=== PATIENT | male | born 1985 | race Caucasian/White ===

== ENCOUNTER 2019-04-25 19:02 | Observation (INO) | payer BC ==
[~2019-04-25] VITALS: Ht 182.9 cm; Wt 69.3 kg
[~2019-04-25 19:02] MED LIST: ACET325 PO; ALBU90OI; ALBU90OI61 INH; AMOX500 PO; AMOX50SU PO; CHLO25 PO; CLOM50A PO; CLON.5; Esgic Tablet1 EACH PO; FAMO20 PO; FLUO20; FLUO20 PO; HYDACE5 PO; IBUP200 PO; LAVAP4L PO; LORA.5; LORA1 PO; PANT40 PO; PROM25 PO; QUET100 PO; QUET25; QUET25 PO; RANI150 PO; SERT20L; SUCR1 PO
[2019-04-25 19:14] LABS: Source, Urine Clean Catch
[2019-04-25 19:21] LABS: BASOPHILS ABSOLUTE AUTO 0.09 K/mm3 (0.00-0.23); BASOPHILS PERCENT AUTO 1 % (0-2); EOSINOPHILS ABSOLUTE AUTO 0.26 K/mm3 (0.00-0.68); EOSINOPHILS PERCENT AUTO 3 % (0-6); Hematocrit 45.8 % (37.0-53.0); Hemoglobin 15.7 g/dL (13.5-17.5); IMMATURE GRAN ABSOLUTE AUTO 0.02 K/mm3 (0.00-0.10); IMMATURE GRAN PERCENT AUTO 0 % (0-1); LYMPHOCYTES ABSOLUTE AUTO 2.58 K/mm3 (0.84-5.20); LYMPHOCYTES PERCENT AUTO 34 % (21-46); MONOCYTES ABSOLUTE AUTO 0.75 K/mm3 (0.16-1.47); MONOCYTES PERCENT AUTO 10 % (4-13); Mean Corpuscular HGB 32.6 pg (26.0-34.0); Mean Corpuscular HGB Conc 34.3 g/dL (31.5-36.5); Mean Corpuscular Volume 95 fL (80-100); Mean Platelet Volume 8.2 fL (9.1-12.4); NEUTROPHILS ABSOLUTE AUTO 3.92 K/mm3 (1.96-9.15); NEUTROPHILS PERCENT AUTO 51 % (41-73); Platelet Count 206 K/mm3 (150-400); RDW Standard Deviation 46.5 fL (35.1-46.3); Red Blood Cell Count 4.81 M/mm3 (4.30-5.90); White Blood Cell Count 7.62 K/mm3 (4.00-11.30)
[2019-04-25 19:24] LABS: Bilirubin, Urine Neg (Neg); Blood, Urine 1+ (Neg); Glucose Qualitative, Urine Neg (Neg); Ketones, Urine Neg (Neg); Leukocyte Esterase, Urine Neg (Neg); Nitrite, Urine Neg (Neg); Protein, Urine 1+ (Neg); Urobilinogen, Urine NORM (Normal)
[2019-04-25 19:42] LABS: Acetaminophen, Random <2.0 ug/mL (10.0-30.0); Alanine Aminotransfer (ALT/SGP 26 U/L (12-78); Albumin, Blood 3.5 g/dL (3.4-5.0); Albumin/Globulin Ratio 1.1 (0.8-1.8); Alk Phos 55 U/L (50-136); Anion Gap 9 mmol/L (6-16); Aspartate Aminotrans (AST/SGOT 32 U/L (12-37); Bilirubin, Total 0.4 mg/dL (0.1-1.0); Blood Urea Nitrogen 9 mg/dL (8-24); Bun/Creatinine Ratio 15.4 (12.0-20.0); CO2, Blood 22 mmol/L (21-32); Calcium, Blood 6.5 mg/dL (8.5-10.1); Chloride, Blood 111 mmol/L (98-108); Creatinine, Blood 0.59 mg/dL (0.60-1.20); Ethanol (Alcohol), Blood, Med 297 mg/dL; Globulin, Blood 3.1 g/dL (2.2-4.0); Glomerular Filtration Rate >60 (60-); Glucose, Blood 68 mg/dL (70-99); Potassium, Blood 3.4 mmol/L (3.5-5.5); Salicylate 4.1 mg/dL (2.8-20.0); Sodium, Blood 142 mmol/L (136-145); Total Protein, Blood 6.6 g/dL (6.4-8.2)
[2019-04-25 19:46] LABS: Thyroid Stimulating Hormone 0.879 uIU/mL (0.360-4.800)
[2019-04-25 19:49] LABS: Appearance, Urine Clear (Clear); Color, Urine No Color (P-Yellow)
[2019-04-25 19:51] LABS: Red Blood Cells, Urine 0-2 /hpf (0-2); Squamous Epithelial Cells Not Seen /hpf (Few); White Blood Cells, Urine 0-2 /hpf (0-5)
[2019-04-25 19:53] LABS: Bacteria Rare /hpf
[2019-04-25 19:55] LABS: U Amphetamine Screen Not Detected; U Barbituate Screen Not Detected; U Benzodiazapine Screen Not Detected; U Buprenorphine Screen Not Detected; U Cannabinoids Screen Not Detected; U Cocaine Screen Not Detected; U Methadone Screen Not Detected; U Methamphetamine Screen Not Detected; U Opiates Screen Not Detected; U Oxycodone Screen Not Detected; U Phencyclidine Screen Not Detected
[2019-04-25 19:56] LABS: U Propoxyphene Screen Not Detected
[2019-04-25] MEDS ORDERED: CHLO25 PO (20:11)
[2019-04-25 21:07] LABS: Magnesium, Blood 2.1 mg/dL (1.6-2.4); Phosphorus, Blood 2.6 mg/dL (2.5-4.9)
[2019-04-26 01:38] LABS: Alanine Aminotransfer (ALT/SGP 28 U/L (12-78); Albumin, Blood 3.9 g/dL (3.4-5.0); Albumin/Globulin Ratio 1.1 (0.8-1.8); Alk Phos 62 U/L (50-136); Anion Gap 8 mmol/L (6-16); Aspartate Aminotrans (AST/SGOT 35 U/L (12-37); Bilirubin, Total 0.5 mg/dL (0.1-1.0); Blood Urea Nitrogen 10 mg/dL (8-24); Bun/Creatinine Ratio 13.2 (12.0-20.0); CO2, Blood 24 mmol/L (21-32); Calcium, Blood 8.5 mg/dL (8.5-10.1); Chloride, Blood 106 mmol/L (98-108); Creatinine, Blood 0.76 mg/dL (0.60-1.20); Globulin, Blood 3.5 g/dL (2.2-4.0); Glomerular Filtration Rate >60 (60-); Glucose, Blood 68 mg/dL (70-99); Potassium, Blood 4.3 mmol/L (3.5-5.5); Sodium, Blood 138 mmol/L (136-145); Total Protein, Blood 7.4 g/dL (6.4-8.2)
--- NOTE | 2019-04-26 05:06 | NUR ---
SHIFT SUMMARY PATIENT IS ALERT AND ORIENTED. CAME TO ROOM VIA WHEEL CHAIR. PATIENT REPORTS THAT HE DRINKS ON AVERAGE AT LEAST 4 BEERS A NIGHT. SOMETIMES MORE, HE STATES HIS LAST DRINK WAS AROUND 1500. NO SHAKINESS NOTED, NO HEADACHE, NO VISUAL DISTURBANCES. NO NAUSEA OR VOMITING. TOLERATING FLUIDS WELL, DRINKING WATER AND GATOR AID. PATIENT IS INDEPENDENT IN ROOM. ON TELE SINUS RHYTHM. PT IS INDEPENDENT IN ROOM. LABS RESULTS FROM 0 SHOW THAT CALIUM LEVEL IS NOW WNL. POTASSIUM LEVEL IS WNL WELL. PATIENT IS EAGER TO GO HOME. NO NEW CHANGES THROUGHOUT THE NIGHT. CALL LIGHT IN REACH.
[2019-04-26] MEDS ORDERED: CHLO25 PO (10:02)
[2019-04-26] MEDS ORDERED: ONE DAILY ESS400 MCG PO (10:03)
--- NOTE | 2019-04-26 10:51 | NUR ---
1030 PT WITH VISIBLE HAND TREMORS, REPORTS NAUSEA, PRN LIBRIUM GIVEN.
--- NOTE | 2019-04-26 12:13 | NUR ---
1150 PT DISCHARGED HOME VIA PERSONAL VEHICLE, ACCOMPANIED AND DRIVEN BY . PT SELF AMBULATED TO ENTRANCE PER HIS REQUEST. IV REMOVED. D/C PAPERWORK REVIEWED WITH PT AND COPY PROVIDED. HARD SCRIPT FOR LIBRIUM GIVEN TO PT. NO OTHER CHANGES OR CONCERNS.
== END 2019-04-26 11:50 | disposition home or self-care (01) ==
LOC: ER 19:02 → MEDS 19:03 → ER 22:20 → MEDS 22:20 → ENPENDDIS 04-26 09:55 → MEDS 04-26 11:50
PROVIDERS: Emergency Medicine; ADMIT Internal Medicine
DX: E83.51 Hypocalcemia (principal); J45.20 Mild intermittent asthma, uncomplicated; F10.239 Alcohol dependence with withdrawal, unspecified; E87.6 Hypokalemia; F32.9 Major depressive disorder, single episode, unspecified; E03.9 Hypothyroidism, unspecified; F17.210 Nicotine dependence, cigarettes, uncomplicated; Z88.5 Allergy status to narcotic agent
CPT/HCPCS: 71046; 80053; 81001; 82306; 82310; 82652; 83690; 83735; 83970; 84100; 84443; 85025; 93005; 93010; 96361; 96365; 96375; 96376; 99285-25; G0378; G0480; J0610; J3360; J7030

== ENCOUNTER 2019-06-20 19:23 | Emergency (ER) | payer BC ==
[~2019-06-20] VITALS: Ht 188 cm; Wt 83.9 kg
[~2019-06-20 19:23] MED LIST changes: +ONE DAILY ESS400 MCG PO
== END 2019-06-20 20:37 | disposition home or self-care (01) ==
LOC: ER 19:23
DX: S91.311A Laceration without foreign body, right foot, initial encounter (principal); F10.129 Alcohol abuse with intoxication, unspecified; J45.909 Unspecified asthma, uncomplicated; F32.9 Major depressive disorder, single episode, unspecified; F17.210 Nicotine dependence, cigarettes, uncomplicated; Z88.5 Allergy status to narcotic agent; X58.XXXA Exposure to other specified factors, initial encounter
CPT/HCPCS: 12002; 99282-25

== ENCOUNTER 2020-02-23 09:40 | Emergency (ER) | payer BC ==
[~2020-02-23] VITALS: Ht 182.9 cm; Wt 74.8 kg
[~2020-02-23 09:40] MED LIST changes: +QUETIAPINE FUMA25 MG PO; +ZOLOFT50 MG PO; +Zoloft100 MG PO
[2020-02-23 10:11] LABS: BASOPHILS ABSOLUTE AUTO 0.07 K/mm3 (0.00-0.23); BASOPHILS PERCENT AUTO 1 % (0-2); EOSINOPHILS ABSOLUTE AUTO 0.26 K/mm3 (0.00-0.68); EOSINOPHILS PERCENT AUTO 5 % (0-6); Hematocrit 51.1 % (37.0-53.0); Hemoglobin 18.1 g/dL (13.5-17.5); IMMATURE GRAN ABSOLUTE AUTO 0.01 K/mm3 (0.00-0.10); IMMATURE GRAN PERCENT AUTO 0 % (0-1); LYMPHOCYTES ABSOLUTE AUTO 1.96 K/mm3 (0.84-5.20); LYMPHOCYTES PERCENT AUTO 34 % (21-46); MONOCYTES ABSOLUTE AUTO 0.69 K/mm3 (0.16-1.47); MONOCYTES PERCENT AUTO 12 % (4-13); Mean Corpuscular HGB 33.1 pg (26.0-34.0); Mean Corpuscular HGB Conc 35.4 g/dL (31.5-36.5); Mean Corpuscular Volume 93 fL (80-100); Mean Platelet Volume 8.3 fL (9.1-12.4); NEUTROPHILS ABSOLUTE AUTO 2.71 K/mm3 (1.96-9.15); NEUTROPHILS PERCENT AUTO 48 % (41-73); Platelet Count 228 K/mm3 (150-400); RDW Coefficient Variation 12.7 % (11.7-14.2); RDW Standard Deviation 43.9 fL (35.1-46.3); Red Blood Cell Count 5.47 M/mm3 (4.30-5.90)
[2020-02-23 10:25] LABS: Alanine Aminotransfer (ALT/SGP 45 U/L (12-78); Albumin, Blood 4.6 g/dL (3.4-5.0); Albumin/Globulin Ratio 1.2 (0.8-1.8); Alk Phos 67 U/L (50-136); Anion Gap 11 mmol/L (6-16); Aspartate Aminotrans (AST/SGOT 47 U/L (12-37); Bilirubin, Total 0.4 mg/dL (0.1-1.0); Blood Urea Nitrogen 6 mg/dL (8-24); Bun/Creatinine Ratio 8.2 (12.0-20.0); CO2, Blood 25 mmol/L (21-32); Calcium, Blood 8.7 mg/dL (8.5-10.1); Chloride, Blood 103 mmol/L (98-108); Creatinine, Blood 0.74 mg/dL (0.60-1.20); Glomerular Filtration Rate >60 (60-); Glucose, Blood 121 mg/dL (70-99); Potassium, Blood 3.7 mmol/L (3.5-5.5); Sodium, Blood 139 mmol/L (136-145); Total Protein, Blood 8.6 g/dL (6.4-8.2)
[2020-02-23] MEDS ORDERED: LORA.5 PO (11:18)
[2020-02-23] MEDS ORDERED: ONDA4 MM (11:18)
== END 2020-02-23 13:12 | disposition home or self-care (01) ==
LOC: ER 09:40
PROVIDERS: Emergency Medicine
DX: R11.2 Nausea with vomiting, unspecified (principal); E86.0 Dehydration; F32.9 Major depressive disorder, single episode, unspecified; F41.9 Anxiety disorder, unspecified; J45.909 Unspecified asthma, uncomplicated; E03.9 Hypothyroidism, unspecified; F17.210 Nicotine dependence, cigarettes, uncomplicated; Z88.5 Allergy status to narcotic agent; Z79.899 Other long term (current) drug therapy
CPT/HCPCS: 36415; 80053; 83690; 85025; 96374; 96375; 99283-25; J2060; J2405; J3411; J3475; J7042

== ENCOUNTER 2020-08-21 19:42 | Emergency (ER) | payer BC ==
[~2020-08-21] VITALS: Ht 182.9 cm; Wt 68.0 kg
[~2020-08-21 19:42] MED LIST changes: +LORA.5 PO; +ONDA4 MM
== END 2020-08-21 19:58 | disposition home or self-care (01) ==
LOC: ER 19:42
DX: M25.511 Pain in right shoulder (principal); E03.9 Hypothyroidism, unspecified; F32.9 Major depressive disorder, single episode, unspecified; F10.229 Alcohol dependence with intoxication, unspecified; F17.210 Nicotine dependence, cigarettes, uncomplicated; Z79.899 Other long term (current) drug therapy
CPT/HCPCS: 99283

== ENCOUNTER 2020-08-30 18:46 | Emergency (ER) | payer BC ==
[~2020-08-30] VITALS: Ht 182.9 cm; Wt 70.3 kg
[2020-08-30 19:13] LABS: BASOPHILS ABSOLUTE AUTO 0.04 K/mm3 (0.00-0.23); BASOPHILS PERCENT AUTO 1 % (0-2); EOSINOPHILS ABSOLUTE AUTO 0.31 K/mm3 (0.00-0.68); EOSINOPHILS PERCENT AUTO 4 % (0-6); Hematocrit 48.5 % (37.0-53.0); Hemoglobin 16.8 g/dL (13.5-17.5); IMMATURE GRAN ABSOLUTE AUTO 0.01 K/mm3 (0.00-0.10); IMMATURE GRAN PERCENT AUTO 0 % (0-1); LYMPHOCYTES ABSOLUTE AUTO 1.79 K/mm3 (0.84-5.20); LYMPHOCYTES PERCENT AUTO 23 % (21-46); MONOCYTES ABSOLUTE AUTO 0.65 K/mm3 (0.16-1.47); MONOCYTES PERCENT AUTO 8 % (4-13); Mean Corpuscular HGB Conc 34.6 g/dL (31.5-36.5); Mean Corpuscular Volume 90 fL (80-100); Mean Platelet Volume 8.6 fL (9.1-12.4); NEUTROPHILS ABSOLUTE AUTO 5.09 K/mm3 (1.96-9.15); NEUTROPHILS PERCENT AUTO 65 % (41-73); Platelet Count 129 K/mm3 (150-400); RDW Coefficient Variation 13.1 % (11.7-14.2); RDW Standard Deviation 43.1 fL (35.1-46.3); Red Blood Cell Count 5.42 M/mm3 (4.30-5.90); White Blood Cell Count 7.89 K/mm3 (4.00-11.30)
[2020-08-30 19:47] LABS: Alanine Aminotransfer (ALT/SGP 40 U/L (12-78); Albumin, Blood 4.2 g/dL (3.4-5.0); Alk Phos 93 U/L (50-136); Anion Gap 7 mmol/L (6-16); Aspartate Aminotrans (AST/SGOT 51 U/L (12-37); Bilirubin, Total 0.5 mg/dL (0.1-1.0); Blood Urea Nitrogen 6 mg/dL (8-24); Bun/Creatinine Ratio 9.4 (12.0-20.0); CO2, Blood 27 mmol/L (21-32); Calcium, Blood 8.9 mg/dL (8.5-10.1); Chloride, Blood 109 mmol/L (98-108); Creatinine, Blood 0.64 mg/dL (0.60-1.20); Glomerular Filtration Rate >60 (60-); Glucose, Blood 98 mg/dL (70-99); Potassium, Blood 3.9 mmol/L (3.5-5.5); Sodium, Blood 143 mmol/L (136-145); Total Protein, Blood 8.2 g/dL (6.4-8.2)
[2020-08-30] MEDS ORDERED: ALPR1 PO (19:47)
[2020-08-30 19:51] LABS: Ethanol (Alcohol), Blood, Med 348 mg/dL
[2020-08-30] MEDS ORDERED: CHLO25 PO (20:02)
== END 2020-08-30 20:55 | disposition home or self-care (01) ==
LOC: ER 18:46
PROVIDERS: Emergency Medicine
DX: F10.129 Alcohol abuse with intoxication, unspecified (principal); F32.9 Major depressive disorder, single episode, unspecified; F17.210 Nicotine dependence, cigarettes, uncomplicated; Z88.5 Allergy status to narcotic agent; Z79.899 Other long term (current) drug therapy; Y90.8 Blood alcohol level of 240 mg/100 ml or more
CPT/HCPCS: 80053; 85025; 99284; G0480

== ENCOUNTER 2020-10-10 09:54 | Emergency (ER) | payer BC ==
[~2020-10-10] VITALS: Ht 182.9 cm; Wt 68.0 kg
[~2020-10-10 09:54] MED LIST changes: +ALPR1 PO
[2020-10-10 11:15] LABS: Calcium, Ionized (POC) 1.08 mmol/L (1.10-1.46); Chloride (POC) 97 mmol/L (98-108); Creatinine (POC) 0.9 mg/dL (0.8-1.3); Glucose (ISTAT POC) 93 mg/dL (70-99); Hemoglobin (POC) 18.7 g/dL (13.5-17.5); Potassium (POC) 3.9 mmol/L (3.5-5.5); Sodium (POC) 133 mmol/L (135-148); Total CO2 (POC) 30 mmol/L (21-32)
[2020-10-10] MEDS ORDERED: NYSTATIN100000 UN4 PO (11:29)
[2020-10-10] MEDS ORDERED: BENZ100A PO (11:29)
[2020-10-10] MEDS ORDERED: Diflucan100 MG PO (11:29)
[2020-10-10] MEDS ORDERED: CHLO25 PO (11:42)
== END 2020-10-10 11:45 | disposition home or self-care (01) ==
LOC: ER 09:54
PROVIDERS: Physician Assistant
DX: J06.9 Acute upper respiratory infection, unspecified (principal); B37.9 Candidiasis, unspecified; F17.210 Nicotine dependence, cigarettes, uncomplicated; Z88.5 Allergy status to narcotic agent; Z79.899 Other long term (current) drug therapy
CPT/HCPCS: 71045; 80047; 85014; 99283-25

== ENCOUNTER 2020-12-07 12:15 | Inpatient (IN) | payer BC, OTHER ==
[~2020-12-07] VITALS: Ht 182.9 cm; Wt 68.7 kg
[~2020-12-07 12:15] MED LIST changes: +BENZ100A PO; +Diflucan100 MG PO; +NYSTATIN100000 UN4 PO
[2020-12-07 13:04] LABS: BASOPHILS ABSOLUTE AUTO 0.03 K/mm3 (0.00-0.23); BASOPHILS PERCENT AUTO 1 % (0-2); EOSINOPHILS ABSOLUTE AUTO 0.58 K/mm3 (0.00-0.68); EOSINOPHILS PERCENT AUTO 9 % (0-6); Hematocrit 43.7 % (37.0-53.0); Hemoglobin 14.7 g/dL (13.5-17.5); IMMATURE GRAN ABSOLUTE AUTO 0.02 K/mm3 (0.00-0.10); IMMATURE GRAN PERCENT AUTO 0 % (0-1); LYMPHOCYTES ABSOLUTE AUTO 1.88 K/mm3 (0.84-5.20); LYMPHOCYTES PERCENT AUTO 29 % (21-46); MONOCYTES ABSOLUTE AUTO 0.55 K/mm3 (0.16-1.47); MONOCYTES PERCENT AUTO 9 % (4-13); Mean Corpuscular HGB 31.5 pg (26.0-34.0); Mean Corpuscular HGB Conc 33.6 g/dL (31.5-36.5); Mean Corpuscular Volume 94 fL (80-100); Mean Platelet Volume 8.4 fL (9.1-12.4); NEUTROPHILS ABSOLUTE AUTO 3.37 K/mm3 (1.96-9.15); NEUTROPHILS PERCENT AUTO 52 % (41-73); Platelet Count 114 K/mm3 (150-400); RDW Coefficient Variation 15.9 % (11.7-14.2); Red Blood Cell Count 4.66 M/mm3 (4.30-5.90); White Blood Cell Count 6.43 K/mm3 (4.00-11.30)
[2020-12-07 13:24] LABS: Alanine Aminotransfer (ALT/SGP 118 U/L (12-78); Albumin, Blood 3.4 g/dL (3.4-5.0); Albumin/Globulin Ratio 0.8 (0.8-1.8); Alk Phos 89 U/L (50-136); Anion Gap 8 mmol/L (6-16); Aspartate Aminotrans (AST/SGOT 142 U/L (12-37); Bilirubin, Total 0.3 mg/dL (0.1-1.0); Blood Urea Nitrogen 7 mg/dL (8-24); Bun/Creatinine Ratio 11.3 (12.0-20.0); CO2, Blood 25 mmol/L (21-32); Calcium, Blood 7.8 mg/dL (8.5-10.1); Chloride, Blood 110 mmol/L (98-108); Creatinine, Blood 0.62 mg/dL (0.60-1.20); Globulin, Blood 4.1 g/dL (2.2-4.0); Glomerular Filtration Rate >60 (60-); Glucose, Blood 74 mg/dL (70-99); Potassium, Blood 3.7 mmol/L (3.5-5.5); Sodium, Blood 143 mmol/L (136-145); Total Protein, Blood 7.5 g/dL (6.4-8.2)
[2020-12-07 13:25] LABS: Ethanol (Alcohol), Blood, Med 319 mg/dL
[2020-12-07] MEDS ORDERED: Alprazolam ER2 MG PO (16:04)
[2020-12-07 19:07] LABS: U Amphetamine Screen Not Detected; U Barbituate Screen Not Detected; U Benzodiazapine Screen DETECTED; U Buprenorphine Screen Not Detected; U Cannabinoids Screen Not Detected; U Cocaine Screen Not Detected; U Methadone Screen Not Detected; U Methamphetamine Screen Not Detected; U Opiates Screen Not Detected; U Oxycodone Screen Not Detected; U Phencyclidine Screen Not Detected; U Propoxyphene Screen Not Detected
[2020-12-08 03:23] LABS: BASOPHILS ABSOLUTE AUTO 0.03 K/mm3 (0.00-0.23); BASOPHILS PERCENT AUTO 1 % (0-2); EOSINOPHILS ABSOLUTE AUTO 0.13 K/mm3 (0.00-0.68); EOSINOPHILS PERCENT AUTO 3 % (0-6); Hematocrit 39.6 % (37.0-53.0); Hemoglobin 13.5 g/dL (13.5-17.5); IMMATURE GRAN ABSOLUTE AUTO 0.01 K/mm3 (0.00-0.10); IMMATURE GRAN PERCENT AUTO 0 % (0-1); LYMPHOCYTES ABSOLUTE AUTO 0.68 K/mm3 (0.84-5.20); LYMPHOCYTES PERCENT AUTO 15 % (21-46); MONOCYTES ABSOLUTE AUTO 0.33 K/mm3 (0.16-1.47); MONOCYTES PERCENT AUTO 7 % (4-13); Mean Corpuscular HGB 31.2 pg (26.0-34.0); Mean Corpuscular HGB Conc 34.1 g/dL (31.5-36.5); Mean Corpuscular Volume 92 fL (80-100); NEUTROPHILS ABSOLUTE AUTO 3.27 K/mm3 (1.96-9.15); NEUTROPHILS PERCENT AUTO 74 % (41-73); Platelet Count 89 K/mm3 (150-400); RDW Coefficient Variation 14.9 % (11.7-14.2); RDW Standard Deviation 50.4 fL (35.1-46.3); Red Blood Cell Count 4.33 M/mm3 (4.30-5.90); White Blood Cell Count 4.45 K/mm3 (4.00-11.30)
[2020-12-08 03:43] LABS: Alanine Aminotransfer (ALT/SGP 100 U/L (12-78); Albumin, Blood 3.2 g/dL (3.4-5.0); Albumin/Globulin Ratio 0.8 (0.8-1.8); Alk Phos 91 U/L (50-136); Anion Gap 4 mmol/L (6-16); Aspartate Aminotrans (AST/SGOT 110 U/L (12-37); Bilirubin, Total 0.8 mg/dL (0.1-1.0); Blood Urea Nitrogen 8 mg/dL (8-24); Bun/Creatinine Ratio 12.7 (12.0-20.0); CO2, Blood 28 mmol/L (21-32); Calcium, Blood 8.1 mg/dL (8.5-10.1); Chloride, Blood 102 mmol/L (98-108); Creatinine, Blood 0.63 mg/dL (0.60-1.20); Globulin, Blood 3.9 g/dL (2.2-4.0); Glomerular Filtration Rate >60 (60-); Glucose, Blood 120 mg/dL (70-99); Potassium, Blood 3.7 mmol/L (3.5-5.5); Sodium, Blood 134 mmol/L (136-145); Total Protein, Blood 7.1 g/dL (6.4-8.2)
--- NOTE | 2020-12-08 07:17 | NUR ---
SHIFT SUMMARY PATIENT ARRIVED TO ICU FROM ED @ 00:40. AFTER COMPLETING ADMISION QUESTIONAIRE WITH HELP OF FAMILY, PT. BEGAN EXPERIENCING WORSENING NAUSEA, OTHER WITHDRAWL SYMPTOMS, GAVE 2MG IVP ATIVAN. PT. RESTED COMFORTABLY UNTIL ABOUT 04:23 THIS MORNING, REQUESTED LIBRIUM FOR HIS SHAKING HE WAS EXPERIENCING, GAVE LIBRIUM, PT. STOPPED SHAKING ALMOST IMMEDIATELY, BEFORE THE PILLS COULD HAVE GOTTEN TO HIS STOMACH. ASSESSMENT IS CHARTED. GAVE X1 MOUTHRINSE FOR SORE THROAT. VSS. WILL CONTINUE TO MONITOR.
--- NOTE | 2020-12-08 12:30 | NUR ---
REASSESSMENT PT RESTING IN BED, ANXIOUS WHEN INTERACTING WITH STAFF. PRECEDEX RECENTLY TITRATED OFF. CIWA SCORES 11-16, PRN LIBRIUM BEING UTILIZED. VITALS HAVE BEEN STABLE. PT C/O MOUTH PAIN RELATED TO ORAL THRUSH. PRN MEDICATED MOUTH RINSE UNTILIZED. PT ABLE TO UTILIZE URINAL AND MOVE AROUND IN BED INDEPENDANTLY.
--- NOTE | 2020-12-08 17:22 | NUR ---
SHIFT SUMMARY PT IS ALERT AND ORIENTED, ANXIOUS, BUT COOPERATIVE. DENIES ANY SUICIDAL THOUGHTS/IDEATIONS. CIWA SCORES 11-16, SEE EMAR FOR PRN MEDICATIONS. PT WAS ABLE TO BE TITRATED OFF OF PRECEDEX GTT TODAY AND WAS STARTED ON SCHEDULED LIBRIUM. PT C/O MOUTH PAIN RELATED TO ORAL THRUSH. PT TOLERATING FLUIDS, HOWEVER DOESN'T HAVE MUCH OF AN APPETITE. PT ABLE TO REPOSITION SELF AND UTILIZE URINAL INDEPENDANTLY. VITALS HAVE BEEN STABLE. PT STATUS CHANEGED TO MEDICAL WITH TELE THIS AFTERNOON. MONITOR HAS SHOWN PT TO BE IN SINUS RHYTHM.
[2020-12-09 03:35] LABS: BASOPHILS ABSOLUTE AUTO 0.01 K/mm3 (0.00-0.23); BASOPHILS PERCENT AUTO 0 % (0-2); EOSINOPHILS ABSOLUTE AUTO 0.19 K/mm3 (0.00-0.68); EOSINOPHILS PERCENT AUTO 4 % (0-6); Hemoglobin 15.8 g/dL (13.5-17.5); IMMATURE GRAN ABSOLUTE AUTO 0.01 K/mm3 (0.00-0.10); IMMATURE GRAN PERCENT AUTO 0 % (0-1); LYMPHOCYTES PERCENT AUTO 21 % (21-46); MONOCYTES ABSOLUTE AUTO 0.38 K/mm3 (0.16-1.47); MONOCYTES PERCENT AUTO 9 % (4-13); Mean Corpuscular HGB 31.4 pg (26.0-34.0); Mean Corpuscular HGB Conc 34.3 g/dL (31.5-36.5); Mean Corpuscular Volume 92 fL (80-100); Mean Platelet Volume 9.1 fL (9.1-12.4); NEUTROPHILS ABSOLUTE AUTO 2.83 K/mm3 (1.96-9.15); NEUTROPHILS PERCENT AUTO 66 % (41-73); Platelet Count 87 K/mm3 (150-400); RDW Coefficient Variation 14.3 % (11.7-14.2); RDW Standard Deviation 48.1 fL (35.1-46.3); Red Blood Cell Count 5.03 M/mm3 (4.30-5.90); White Blood Cell Count 4.32 K/mm3 (4.00-11.30)
[2020-12-09 04:00] LABS: Alanine Aminotransfer (ALT/SGP 108 U/L (12-78); Albumin, Blood 3.4 g/dL (3.4-5.0); Albumin/Globulin Ratio 0.7 (0.8-1.8); Alk Phos 126 U/L (50-136); Anion Gap 9 mmol/L (6-16); Aspartate Aminotrans (AST/SGOT 111 U/L (12-37); Bilirubin, Total 0.7 mg/dL (0.1-1.0); Blood Urea Nitrogen 9 mg/dL (8-24); Bun/Creatinine Ratio 12.3 (12.0-20.0); CO2, Blood 24 mmol/L (21-32); Calcium, Blood 8.9 mg/dL (8.5-10.1); Chloride, Blood 102 mmol/L (98-108); Creatinine, Blood 0.73 mg/dL (0.60-1.20); Globulin, Blood 4.7 g/dL (2.2-4.0); Glomerular Filtration Rate >60 (60-); Glucose, Blood 77 mg/dL (70-99); Magnesium, Blood 2.1 mg/dL (1.6-2.4); Potassium, Blood 4.2 mmol/L (3.5-5.5); Sodium, Blood 135 mmol/L (136-145); Total Protein, Blood 8.1 g/dL (6.4-8.2)
--- NOTE | 2020-12-09 05:40 | NUR ---
SHIFT SUMMARY PT ALERT AND ORIENTED. VS STABLE. PT ANXIOUS AT TIMES. CIWA 4-11 THIS SHIFT AND MEDICATED ORDERED. PT DENIES ANY PAIN. PT COMPLAINS OF COUGH DUE TO HIS THRUSH. PT MEDICATED FOR INDEGESTION NEEDED. PT ABLE TO USE THE URINAL AT BEDSIDE. WILL CONTINUE TO MONITOR AND REPORT TO ONCOMING RN. CALL LIGHT IN REACH. PT CALLING APPROPRIATELY.
--- NOTE | 2020-12-09 07:47 | NUR ---
ASSUMED CARE OF PT, REPORT RCV'D FROM CATIE DINERO. PT ALERT AND ORIENTED, INDEPENDENT IN ROOM. PT DENIES NEEDS AT THIS TIME. PT HAS SLIGHT TREMORS, NO ADDITIONAL OUTWARD SIGNS OF ETOH WITHDRAWAL. PT TACHYCARDIC WHEN AMBULATING WITH HR IN 150'S, NSR AT REST. ALL OTHER VSS. PT TO BE TRANSFERRED TO SURGICAL FLOOR WHEN BED AVAILABLE. SEE FULL SHIFT ASSESSMENT.
--- NOTE | 2020-12-09 11:02 | NUR ---
TRANSFER: REPORT RECEIVED FROM ASSEMBLER FITTER RICK. PT TO UNIT AT ABOUT 0930. UPON ASSESSMENT PT IS A/O, VSS. INDEPENDENT IN ROOM. NO CONCERNS AT THIS TIME, POSSIBLE DC TODAY. WILL CTM
[2020-12-09] MEDS ORDERED: TUMS500 MG PO (13:11)
[2020-12-09] MEDS ORDERED: ACET325 PO (13:11)
[2020-12-09] MEDS ORDERED: GABA300 PO (13:12)
[2020-12-09] MEDS ORDERED: FLUC200 PO (13:12)
[2020-12-09] MEDS ORDERED: NICO21TP TOP (13:13)
[2020-12-09] MEDS ORDERED: ONDA4ODT MM (13:15)
[2020-12-09] MEDS ORDERED: PROTONIX40 M2 PO (13:17)
[2020-12-09] MEDS ORDERED: VISBIOME 112.51 EACH PO (13:18)
[2020-12-09] MEDS ORDERED: [UNRECOGNIZED DRUG - CODE] MT (13:27)
--- NOTE | 2020-12-09 15:15 | NUR ---
DISCHARGE: PACKET PRINTED AND PT EDUCATED. PT DENIED NEED FOR WHEELCHAIR, AND LEFT UNIT ON FOOT AT ABOUT 1450.
[2020-12-14 16:07] LABS: PANEL 138901 Negative (Negative)
== END 2020-12-09 14:51 | disposition home or self-care (01) | DRG 897 ==
LOC: ER 12:15 → EOR 12:16 → ER 12:16 → EOR 12:16 → ICUW 12:16 → ICUE 12:16 → ER 14:05 → ICUW 14:05 → ICUE 23:50 → SURS 12-09 09:14
PROVIDERS: Internal Medicine; Nurse Practitioner Acute Care; ADMIT Emergency Medicine
DX: F10.220 Alcohol dependence with intoxication, uncomplicated (principal); G93.40 Encephalopathy, unspecified; B37.0 Candidal stomatitis; F10.230 Alcohol dependence with withdrawal, uncomplicated; F17.210 Nicotine dependence, cigarettes, uncomplicated; F41.9 Anxiety disorder, unspecified; E03.9 Hypothyroidism, unspecified; F32.9 Major depressive disorder, single episode, unspecified
CPT/HCPCS: 36415; 80053; 83735; 85025; 86702; 93005; 93010; 96374; 99285-25; A9270; G0480; J1650; J2060; J3411; J3475; J7030; J7042; Q3014

== ENCOUNTER 2021-01-10 09:52 | Inpatient (IN) | payer BC, OTHER ==
[~2021-01-10] VITALS: Ht 182.9 cm; Wt 69.1 kg
[~2021-01-10 09:52] MED LIST changes: +Alprazolam ER2 MG PO; +FLUC200 PO; +GABA300 PO; +NICO21TP TOP; +ONDA4ODT MM; +PROTONIX40 M2 PO; +TUMS500 MG PO; +VISBIOME 112.51 EACH PO; +[UNRECOGNIZED DRUG - CODE] MT
[2021-01-10 10:28] LABS: Hematocrit 40.7 % (37.0-53.0); Hemoglobin 14.9 g/dL (13.5-17.5); Mean Corpuscular HGB Conc 36.6 g/dL (31.5-36.5); Mean Corpuscular Volume 90 fL (80-100); Mean Platelet Volume 9.5 fL (9.1-12.4); Platelet Count 57 K/mm3 (150-400); RDW Coefficient Variation 14.8 % (11.7-14.2); RDW Standard Deviation 49.4 fL (35.1-46.3); Red Blood Cell Count 4.52 M/mm3 (4.30-5.90); White Blood Cell Count 8.72 K/mm3 (4.00-11.30)
[2021-01-10 10:58] LABS: Alanine Aminotransfer (ALT/SGP 46 U/L (12-78); Albumin, Blood 3.2 g/dL (3.4-5.0); Albumin/Globulin Ratio 0.7 (0.8-1.8); Alk Phos 155 U/L (50-136); Anion Gap 10 mmol/L (6-16); Aspartate Aminotrans (AST/SGOT 135 U/L (12-37); BAND PERCENT MAN 2 % (0-8); BASOPHILS PERCENT MAN 0 % (0-2); Bilirubin, Total 1.6 mg/dL (0.1-1.0); Blood Urea Nitrogen 6 mg/dL (8-24); Bun/Creatinine Ratio 8.6 (12.0-20.0); CO2, Blood 28 mmol/L (21-32); Chloride, Blood 93 mmol/L (98-108); Creatinine, Blood 0.69 mg/dL (0.60-1.20); EOSINOPHILS PERCENT MAN 0 % (0-6); Globulin, Blood 4.7 g/dL (2.2-4.0); Glomerular Filtration Rate >60 (60-); Glucose, Blood 131 mg/dL (70-99); LYMPHOCYTES ABSOLUTE MAN 0.26 K/mm3 (0.84-5.20); LYMPHOCYTES PERCENT MAN 3 % (21-46); MONOCYTES ABSOLUTE MAN 0.17 K/mm3 (0.16-1.47); MONOCYTES PERCENT MAN 2 % (4-13); NEUTROPHILS ABSOLUTE MAN 8.28 K/mm3 (1.96-9.15); Potassium, Blood 3.1 mmol/L (3.5-5.5); SEG NEUTROPHILS PERCENT MAN 93 % (41-73); Sodium, Blood 131 mmol/L (136-145); TOTAL CELLS COUNTED 100; Total Protein, Blood 7.9 g/dL (6.4-8.2)
[2021-01-10 12:00] LABS: Salicylate <1.7 mg/dL (2.8-20.0)
[2021-01-10 12:12] LABS: Acetaminophen, Random <2.0 ug/mL (10.0-30.0)
[2021-01-10 13:44] LABS: Influenza A, PCR NEGATIVE (NEGATIVE); Influenza B, PCR NEGATIVE (NEGATIVE); Resp Syncytial Virus, PCR NEGATIVE (NEGATIVE); SARS-Cov-2 (COVID-19) PCR, MMC NEGATIVE (NEGATIVE)
[2021-01-10] MEDS ORDERED: HALCION0.25 M2 PO (13:51)
[2021-01-10 15:03] LABS: Source, Urine Voided
[2021-01-10 15:08] LABS: Appearance, Urine Clear (Clear); Bilirubin, Urine Neg (Neg); Blood, Urine 4+ (Neg); Color, Urine Yellow (P-Yellow); Glucose Qualitative, Urine Neg (Neg); Ketones, Urine Neg (Neg); Leukocyte Esterase, Urine Neg (Neg); Nitrite, Urine Neg (Neg); Protein, Urine 3+ (Neg); Urobilinogen, Urine 1+ (Normal)
[2021-01-10 15:45] LABS: U Amphetamine Screen Not Detected; U Barbituate Screen Not Detected; U Benzodiazapine Screen DETECTED; U Buprenorphine Screen Not Detected; U Cannabinoids Screen Not Detected; U Cocaine Screen Not Detected; U Methadone Screen Not Detected; U Methamphetamine Screen Not Detected; U Opiates Screen Not Detected; U Oxycodone Screen Not Detected; U Phencyclidine Screen Not Detected; U Propoxyphene Screen Not Detected
[2021-01-10 16:24] LABS: White Blood Cells, Urine 0-2 /hpf (0-5)
[2021-01-10 16:25] LABS: Amorphous Light (0-Heavy); Bacteria Few /hpf; Mucus Light (0-Heavy); Squamous Epithelial Cells Few /hpf (Few)
--- NOTE | 2021-01-10 18:24 | NUR ---
ADMIT NOTE RECEIVED REPORT FROM CATIE RAMIREZ IN ED. PT TO ROOM AT 1555, SBA TRANSFER TO BED. PT ORIENTED TO ROOM AND CALL LIGHT. EDUCATED ON FALL RISK. PT A&Ox4; ANXIOUS BUT COOPERATIVE WITH CARE. CIWA 12, MEDICATED WITH ATIVAN. PT DENIES PAIN, CHEST PAIN, SOB AND DIZZINESS. PT REPORTS A LITTLE NAUSEA, DENIES EMESIS OR THE NEED FOR INTERVENTION. ELEVATE HR, BP AND RESP. TEMP 99.7. CIGARETTE BURN TO RIGHT MIDDLE FINGER, PICTURES IN CHART. PT DENIES ANY SUICIDAL IDEATION; CALLED ADMITING PROVIDER TO VERIFY NO SI PRECAUTIONS; CONFIRMED NO SI PRECAUTIONS NEEDED AT THIS TIME. NO OTHER ACUTE CHANGES NOTED. WILL CONTINUE TO MONITOR UNITL REPORT GIVEN TO ONCOMING RN.
--- NOTE | 2021-01-10 19:18 | NUR ---
SPOKE WITH DR NIX REGARDING HR, 110'S FOR MAJORITY OF SHIFT, OCCAIONALLY HITTING 120, UNTIL THIS EVENING, MAINTAINING 120'S. OTHER VSS.
[2021-01-11 04:09] LABS: BASOPHILS ABSOLUTE AUTO 0.02 K/mm3 (0.00-0.23); BASOPHILS PERCENT AUTO 0 % (0-2); EOSINOPHILS PERCENT AUTO 0 % (0-6); Hematocrit 38.7 % (37.0-53.0); Hemoglobin 13.5 g/dL (13.5-17.5); IMMATURE GRAN ABSOLUTE AUTO 0.02 K/mm3 (0.00-0.10); IMMATURE GRAN PERCENT AUTO 0 % (0-1); LYMPHOCYTES ABSOLUTE AUTO 0.77 K/mm3 (0.84-5.20); LYMPHOCYTES PERCENT AUTO 11 % (21-46); MONOCYTES ABSOLUTE AUTO 0.22 K/mm3 (0.16-1.47); MONOCYTES PERCENT AUTO 3 % (4-13); Mean Corpuscular HGB 32.6 pg (26.0-34.0); Mean Corpuscular HGB Conc 34.9 g/dL (31.5-36.5); Mean Corpuscular Volume 94 fL (80-100); Mean Platelet Volume 10.5 fL (9.1-12.4); NEUTROPHILS ABSOLUTE AUTO 5.75 K/mm3 (1.96-9.15); NEUTROPHILS PERCENT AUTO 85 % (41-73); Platelet Count 54 K/mm3 (150-400); RDW Coefficient Variation 14.4 % (11.7-14.2); Red Blood Cell Count 4.14 M/mm3 (4.30-5.90); White Blood Cell Count 6.78 K/mm3 (4.00-11.30)
--- NOTE | 2021-01-11 04:16 | NUR ---
SHIFT SUMMARY PATIENT IS ALERT AND ORIENTED. CIWA OF 11 AT BEGINNING OF SHIFT WITH VISIBLE TREMORS, MEDICATED PER EMAR, CIWA IMPROVED TO A 5 @0100. LAST CIWA @0325 WAS 9, MEDICATED PER EMAR, PATIENT NOW SLEEPING. PATIENT IS A SBA TO THE BATHROOM, STATES HE IS HAVING DIARRHEA THAT IS BROWN/GREEN. PATIENT DRINKING FLUIDS. 02 SATS >90% ON RA. VSS, NO ACUTE CHANGES. BED ALARM ON, REINFORCED WITH PATIENT THE NEED TO HAVE SOMEONE WITH HIM WHILE HE IS OUT OF BED. CALL LIGHT IN REACH.
[2021-01-11 04:30] LABS: Alanine Aminotransfer (ALT/SGP 36 U/L (12-78); Albumin, Blood 2.7 g/dL (3.4-5.0); Albumin/Globulin Ratio 0.6 (0.8-1.8); Alk Phos 125 U/L (50-136); Anion Gap 10 mmol/L (6-16); Aspartate Aminotrans (AST/SGOT 74 U/L (12-37); Bilirubin, Total 1.1 mg/dL (0.1-1.0); Blood Urea Nitrogen 9 mg/dL (8-24); Bun/Creatinine Ratio 15.1 (12.0-20.0); CO2, Blood 24 mmol/L (21-32); Calcium, Blood 8.2 mg/dL (8.5-10.1); Chloride, Blood 103 mmol/L (98-108); Globulin, Blood 4.3 g/dL (2.2-4.0); Glomerular Filtration Rate >60 (60-); Glucose, Blood 66 mg/dL (70-99); Magnesium, Blood 2.1 mg/dL (1.6-2.4); Potassium, Blood 3.3 mmol/L (3.5-5.5); Sodium, Blood 137 mmol/L (136-145)
--- NOTE | 2021-01-11 13:00 | NUR ---
Update: Continue physician hold at this time. Pt states he is not SI. No SI orders at this time. Pt will be assessed by Dr. Wilson to see the patient later today.
--- NOTE | 2021-01-11 17:53 | NUR ---
SHIFT SUMMARY NO ACUTE EVENTS THIS SHIFT, VSS. PATIENT HAS BEEN ALERT AND ORIENTED, COOPERATIVE WITH CARE THIS SHIFT. PATIENT'S CIWA SCORE RANGED 6-9. MEDICATED WITH LIBRIUM PER EMAR. PATIENT DENIED SUICIDAL IDEATION THIS SHIFT. DR. JACK SAW PATIENT, 2 MD HOLD DROPPED. PATIENT HAS BEEN STANDBY ASSIST TO BATHROOM FOR LINE MANAGEMENT, TOLERATING WELL.
--- NOTE | 2021-01-11 23:07 | NUR ---
ASSUMED CARE AT 1900 PT SLEEPING IN BED, IS ALERT/ORIENTED X4 AND ABLE TO MAKE HIS NEEDS KNOWN. PT IS SLIGHLTY ANXIOUS, CIWA 3, PRN LIBRIUM REQUESTED AND GIVEN. OCCATIONAL PRODUCTIVE COUGH NOTED; SPO2 >95% ON RA. VITALS STABLE. SEE SHIFT ASSESSMENT FOR FULL ASSESSMENT.
[2021-01-12 04:11] LABS: BASOPHILS ABSOLUTE AUTO 0.03 K/mm3 (0.00-0.23); BASOPHILS PERCENT AUTO 1 % (0-2); EOSINOPHILS ABSOLUTE AUTO 0.07 K/mm3 (0.00-0.68); EOSINOPHILS PERCENT AUTO 2 % (0-6); Hematocrit 37.6 % (37.0-53.0); Hemoglobin 13.1 g/dL (13.5-17.5); IMMATURE GRAN ABSOLUTE AUTO 0.01 K/mm3 (0.00-0.10); IMMATURE GRAN PERCENT AUTO 0 % (0-1); LYMPHOCYTES ABSOLUTE AUTO 0.77 K/mm3 (0.84-5.20); LYMPHOCYTES PERCENT AUTO 24 % (21-46); MONOCYTES ABSOLUTE AUTO 0.29 K/mm3 (0.16-1.47); MONOCYTES PERCENT AUTO 9 % (4-13); Mean Corpuscular HGB 32.6 pg (26.0-34.0); Mean Corpuscular HGB Conc 34.8 g/dL (31.5-36.5); Mean Corpuscular Volume 94 fL (80-100); Mean Platelet Volume 10.5 fL (9.1-12.4); NEUTROPHILS ABSOLUTE AUTO 1.99 K/mm3 (1.96-9.15); NEUTROPHILS PERCENT AUTO 63 % (41-73); Platelet Count 82 K/mm3 (150-400); RDW Coefficient Variation 13.9 % (11.7-14.2); RDW Standard Deviation 47.6 fL (35.1-46.3); Red Blood Cell Count 4.02 M/mm3 (4.30-5.90); White Blood Cell Count 3.16 K/mm3 (4.00-11.30)
[2021-01-12 04:39] LABS: Alanine Aminotransfer (ALT/SGP 33 U/L (12-78); Albumin, Blood 2.6 g/dL (3.4-5.0); Albumin/Globulin Ratio 0.6 (0.8-1.8); Alk Phos 110 U/L (50-136); Anion Gap 9 mmol/L (6-16); Aspartate Aminotrans (AST/SGOT 53 U/L (12-37); Bilirubin, Total 1.1 mg/dL (0.1-1.0); Blood Urea Nitrogen 9 mg/dL (8-24); Bun/Creatinine Ratio 15.4 (12.0-20.0); CO2, Blood 24 mmol/L (21-32); Calcium, Blood 8.3 mg/dL (8.5-10.1); Chloride, Blood 102 mmol/L (98-108); Creatinine, Blood 0.59 mg/dL (0.60-1.20); Globulin, Blood 4.4 g/dL (2.2-4.0); Glomerular Filtration Rate >60 (60-); Glucose, Blood 72 mg/dL (70-99); Magnesium, Blood 2.2 mg/dL (1.6-2.4); Phosphorus, Blood 2.9 mg/dL (2.5-4.9); Potassium, Blood 3.2 mmol/L (3.5-5.5); Sodium, Blood 135 mmol/L (136-145); Thyroid Stimulating Hormone 0.782 uIU/mL (0.360-4.800)
--- NOTE | 2021-01-12 05:09 | NUR ---
END OF SHIFT SUMMARY PT SLEPT ON AND OFF ALL NIGHT, IS ALERT/ORIENTED X4 AND ABLE TO MAKE HIS NEEDS KNOWN. CIWA 2-4; LIBRIUM GIVEN TWICE DUE TO INCREASE ANXIETY. SPO2 >95% ON RA; SMALL-MODERATE AMOUNT OF THICK SPUTUM COUGHED UP. HR 60-70'S. MAX TEMP 99.6. BP STABLE. WILL REPORT TO AM RN WHEN AVAILABLE.
--- NOTE | 2021-01-12 06:30 | NUR ---
NOTIFIED DR GANT CALLED DR GANT WITH POTASSIUM LEVEL OF 3.2, NEW ORDERS PROVIDED FOR POTASSIUM CHLORIDE 40 MEQ PO ONCE NOW.
[2021-01-12] MEDS ORDERED: ACET325 PO (11:21)
[2021-01-12] MEDS ORDERED: AZIT500 PO (11:23)
[2021-01-12] MEDS ORDERED: CEFP200 PO (11:24)
[2021-01-12] MEDS ORDERED: GUAI600T33 PO (11:26)
[2021-01-12] MEDS ORDERED: K-Dur20 MEQ PO (11:27)
[2021-01-12] MEDS ORDERED: VISBIOME 112.51 EACH PO (11:28)
--- NOTE | 2021-01-12 12:04 | NUR ---
PATIENT PROVIDED DISCHARGE INFO REGARDING FOLLOW UP PLANS, REASONS TO RETURN TO THE HOSPITAL, AND MEDICATION INFORMATION. PATIENT COUNSELED TO LIMIT AND AVOID ALCOHOL INTAKE. PATIENT VERBALIZED UNDERSTANDING, NO SIGNS OF ACUTE DISTRESS. PATIENT LEFT BY AMBULATION TO PRIVATE VEHICLE.
== END 2021-01-12 12:00 | disposition home or self-care (01) | DRG 896 ==
LOC: ER 09:52 → PCU 13:47
PROVIDERS: Emergency Medicine; Nurse Practitioner Acute Care; ADMIT Family Medicine
DX: F10.239 Alcohol dependence with withdrawal, unspecified (principal); J18.9 Pneumonia, unspecified organism; R45.851 Suicidal ideations; Z20.822 Contact with and (suspected) exposure to COVID-19; F41.9 Anxiety disorder, unspecified; D69.6 Thrombocytopenia, unspecified; E87.6 Hypokalemia; F17.210 Nicotine dependence, cigarettes, uncomplicated
CPT/HCPCS: 0241U; 36415; 71045; 80053; 81001; 83605; 83690; 83735; 84100; 84145; 84443; 85025; 87040; 93005; 93010; 96365; 96375; 99285-25; A9270; G0480; J0696; J2060; J3411; J3475; J7030; J7042; J7060; Q3014

== ENCOUNTER 2021-02-20 22:14 | Inpatient (IN) | payer BC, OTHER ==
[~2021-02-20] VITALS: Ht 182.9 cm; Wt 66.0 kg
[~2021-02-20 22:14] MED LIST changes: +AZIT500 PO; +CEFP200 PO; +GUAI600T33 PO; +HALCION0.25 M2 PO; +K-Dur20 MEQ PO
[2021-02-21 01:55] LABS: BASOPHILS ABSOLUTE AUTO 0.04 K/mm3 (0.00-0.23); BASOPHILS PERCENT AUTO 1 % (0-2); EOSINOPHILS ABSOLUTE AUTO 0.01 K/mm3 (0.00-0.68); EOSINOPHILS PERCENT AUTO 0 % (0-6); Hematocrit 44.2 % (37.0-53.0); Hemoglobin 15.9 g/dL (13.5-17.5); IMMATURE GRAN ABSOLUTE AUTO 0.03 K/mm3 (0.00-0.10); IMMATURE GRAN PERCENT AUTO 1 % (0-1); LYMPHOCYTES ABSOLUTE AUTO 0.69 K/mm3 (0.84-5.20); LYMPHOCYTES PERCENT AUTO 13 % (21-46); MONOCYTES ABSOLUTE AUTO 0.29 K/mm3 (0.16-1.47); MONOCYTES PERCENT AUTO 5 % (4-13); Mean Corpuscular HGB 33.4 pg (26.0-34.0); Mean Corpuscular Volume 93 fL (80-100); Mean Platelet Volume 9.5 fL (9.1-12.4); NEUTROPHILS ABSOLUTE AUTO 4.35 K/mm3 (1.96-9.15); NEUTROPHILS PERCENT AUTO 80 % (41-73); Platelet Count 66 K/mm3 (150-400); RDW Coefficient Variation 14.4 % (11.7-14.2); RDW Standard Deviation 49.8 fL (35.1-46.3); Red Blood Cell Count 4.76 M/mm3 (4.30-5.90); White Blood Cell Count 5.41 K/mm3 (4.00-11.30)
[2021-02-21 02:07] LABS: Alanine Aminotransfer (ALT/SGP 315 U/L (12-78); Albumin, Blood 3.5 g/dL (3.4-5.0); Albumin/Globulin Ratio 0.8 (0.8-1.8); Alk Phos 204 U/L (50-136); Anion Gap 14 mmol/L (6-16); Aspartate Aminotrans (AST/SGOT 701 U/L (12-37); Blood Urea Nitrogen 9 mg/dL (8-24); Bun/Creatinine Ratio 10.9 (12.0-20.0); CO2, Blood 22 mmol/L (21-32); Calcium, Blood 7.7 mg/dL (8.5-10.1); Chloride, Blood 94 mmol/L (98-108); Creatinine, Blood 0.83 mg/dL (0.60-1.20); Globulin, Blood 4.3 g/dL (2.2-4.0); Glomerular Filtration Rate >60 (60-); Glucose, Blood 85 mg/dL (70-99); Potassium, Blood 3.8 mmol/L (3.5-5.5); Sodium, Blood 130 mmol/L (136-145); Total Protein, Blood 7.8 g/dL (6.4-8.2)
[2021-02-21 02:25] LABS: Ethanol (Alcohol), Blood, Med 374 mg/dL
[2021-02-21 04:05] LABS: Magnesium, Blood 2.1 mg/dL (1.6-2.4)
[2021-02-21 07:24] LABS: CHOL/HDL RATIO 2.3; Cholesterol 214 mg/dL (50-200); HDL Cholesterol 94 mg/dL (>39); Low Density Lipoprotein Chol 97 mg/dL (0-110); Triglycerides 114 mg/dL (30-140); Very Low Density Lipoprot Chol 22 mg/dL (6-28)
--- NOTE | 2021-02-21 15:49 | NUR ---
UPDATE PT HAVING INCREASE IN TEMP. PHYSICIAN NOTIFIED, MEDICATION ORDERED PER PHYSICIAN.
--- NOTE | 2021-02-21 16:38 | NUR ---
PHYSICIAN UPDATED PHYSICIAN INFORMED PT DID NOT VOID T/O SHIFT. BLADDER SCAN DONE, OVER 600 ML OF URINE. ORDERS FOR STRAIGHT CATH Q 6 IF OVER 400 ML OF URINE IN BLADDER AND BLADDER SCAN ORDERS PUT IN.
[2021-02-21 17:46] LABS: Source, Urine Clean Catch
[2021-02-21 17:50] LABS: Appearance, Urine Clear (Clear); Bilirubin, Urine Neg (Neg); Blood, Urine 1+ (Neg); Color, Urine Amber (P-Yellow); Glucose Qualitative, Urine Neg (Neg); Ketones, Urine 4+ (Neg); Leukocyte Esterase, Urine 1+ (Neg); Nitrite, Urine Neg (Neg); Protein, Urine 2+ (Neg); Urobilinogen, Urine 2+ (Normal); pH, Urine 6.5 (5.0-8.0)
[2021-02-21 18:05] LABS: U Amphetamine Screen Not Detected; U Barbituate Screen Not Detected; U Benzodiazapine Screen DETECTED; U Buprenorphine Screen Not Detected; U Cannabinoids Screen Not Detected; U Cocaine Screen Not Detected; U Methadone Screen Not Detected; U Methamphetamine Screen Not Detected; U Opiates Screen DETECTED; U Oxycodone Screen Not Detected; U Phencyclidine Screen Not Detected; U Propoxyphene Screen Not Detected
[2021-02-21 18:09] LABS: Bacteria Few /hpf; Squamous Epithelial Cells Rare /hpf (Few)
--- NOTE | 2021-02-21 18:21 | NUR ---
SHIFT SUMMARY PT ALERT AND ORIENTED X 4. CIWA SCORE 9. VS STABLE. PT HAD INCREASE IN TEMP. PHYSICIAN NOTIFIED, MEDICATION GIVEN PER EMAR. MEDICATION GIVEN PER EMAR FOR ETOH WITHDRAWL SYMPTOMS. BLADDER SCAN REVEALED OVER 600 ML OF URINE IN BLADDER. PHYSICIAN NOTIFIED. STRAIGHT CATH ORDERED PRN. PICTURES OF PT'S WOUNDS IN CHART. WOUNDS WNL. C/D/I. WOUNDS SCATTERED T/O. PT STATES MOST WOUNDS ARE D/T "FALL AT HOME FROM DOG." WOUNDS APPEAR TO BE LACERATIONS. ALL WNL, C/D/I. WOUND CARE PROVIDED. WILL CONTINUE TO MONITOR UNTIL REPORT GIVEN TO NIGHTSHIFT RN. .
[2021-02-22 04:06] LABS: BASOPHILS ABSOLUTE AUTO 0.03 K/mm3 (0.00-0.23); BASOPHILS PERCENT AUTO 1 % (0-2); EOSINOPHILS ABSOLUTE AUTO 0.03 K/mm3 (0.00-0.68); EOSINOPHILS PERCENT AUTO 1 % (0-6); Hematocrit 39.7 % (37.0-53.0); Hemoglobin 13.4 g/dL (13.5-17.5); IMMATURE GRAN ABSOLUTE AUTO 0.01 K/mm3 (0.00-0.10); IMMATURE GRAN PERCENT AUTO 0 % (0-1); LYMPHOCYTES ABSOLUTE AUTO 0.72 K/mm3 (0.84-5.20); LYMPHOCYTES PERCENT AUTO 20 % (21-46); MONOCYTES ABSOLUTE AUTO 0.23 K/mm3 (0.16-1.47); MONOCYTES PERCENT AUTO 6 % (4-13); Mean Corpuscular HGB 32.9 pg (26.0-34.0); Mean Corpuscular HGB Conc 33.8 g/dL (31.5-36.5); Mean Platelet Volume 8.9 fL (9.1-12.4); NEUTROPHILS ABSOLUTE AUTO 2.63 K/mm3 (1.96-9.15); NEUTROPHILS PERCENT AUTO 72 % (41-73); RDW Coefficient Variation 14.5 % (11.7-14.2); RDW Standard Deviation 51.8 fL (35.1-46.3); Red Blood Cell Count 4.07 M/mm3 (4.30-5.90); White Blood Cell Count 3.65 K/mm3 (4.00-11.30)
[2021-02-22 04:48] LABS: Mean Corpuscular Volume 98 fL (80-100)
[2021-02-22 04:49] LABS: Platelet Count 34 K/mm3 (150-400)
--- NOTE | 2021-02-22 05:32 | NUR ---
SHIFT SUMMARY PATIENT FOUND TO BE A&OX4, [place], FOLLOWING COMMANDS. CIWA FROM 4-8 ALL SHIFT AND SEIZURE PRECUATIONS IN PLACE. LIBRIUM GIVEN PER PROTOCOL. ALSO HAVING 10/10 PAIN TO ABDOMEN WITH LITTLE TO NO RELIEF WITH FENTANYL ORDERED. MD OVERNIGHT DID NOT WANT TO INCREASE THE DOSAGE. IV FLUIDS RUNNING PER ORDER. Q6 BLADDER SCAN CONTINUE AND UNABLE TO VOID ON OWN SO STRAIGHT CATH WITH 700 ML OUT. NPO FOR BOWEL REST. FALL PRECAUTIONS IN PLACE. NO ACUTE CONCERNS AT THIS TIME. WILL CONTINUE TO MONITOR.
[2021-02-22 05:46] LABS: Alanine Aminotransfer (ALT/SGP 196 U/L (12-78); Albumin, Blood 2.8 g/dL (3.4-5.0); Albumin/Globulin Ratio 0.8 (0.8-1.8); Alk Phos 159 U/L (50-136); Anion Gap 11 mmol/L (6-16); Aspartate Aminotrans (AST/SGOT 376 U/L (12-37); Bilirubin, Total 0.8 mg/dL (0.1-1.0); Blood Urea Nitrogen 7 mg/dL (8-24); Bun/Creatinine Ratio 11.7 (12.0-20.0); CO2, Blood 23 mmol/L (21-32); Calcium, Blood 7.6 mg/dL (8.5-10.1); Chloride, Blood 100 mmol/L (98-108); Globulin, Blood 3.6 g/dL (2.2-4.0); Glomerular Filtration Rate >60 (60-); Glucose, Blood 59 mg/dL (70-99); Potassium, Blood 3.6 mmol/L (3.5-5.5); Sodium, Blood 134 mmol/L (136-145); Total Protein, Blood 6.4 g/dL (6.4-8.2)
--- NOTE | 2021-02-22 14:15 | NUR ---
UPDATE PHYSICIAN INFORMED PT'S PAIN INCREASING TO 10/10. PAIN MEDICATION ORDERED PER PHYSICIAN.
--- NOTE | 2021-02-22 17:50 | NUR ---
SHIFT SUMMARY PT ALERT AND ORIENTED X 4. HR STABLE. BP STABLE. OXYGEN SATURATION MAINTAINED ABOVE 92% ON RA. PT ABLE TO TURN SELF IN BED. BED ALARM ON FOR PT SAFETY. PT REPORTS PAIN, MEDICATED PER EMAR. CIWA CURRENTLY STABLE AT 7. PT ABLE TO VOID ON OWN. NO STRAIGHT CATH NEEDED. PT'S DAD AT BEDSIDE, UPDATED ON PLAN OF CARE. WILL CONTINUE TO MONITOR UNTIL REPORT GIVEN TO NIGHTSHIFT RN.
[2021-02-23 04:35] LABS: Alanine Aminotransfer (ALT/SGP 172 U/L (12-78); Albumin, Blood 2.7 g/dL (3.4-5.0); Albumin/Globulin Ratio 0.7 (0.8-1.8); Alk Phos 146 U/L (50-136); Anion Gap 6 mmol/L (6-16); Aspartate Aminotrans (AST/SGOT 311 U/L (12-37); Bilirubin, Total 0.8 mg/dL (0.1-1.0); Blood Urea Nitrogen 4 mg/dL (8-24); Bun/Creatinine Ratio 6.6 (12.0-20.0); CO2, Blood 27 mmol/L (21-32); Calcium, Blood 7.6 mg/dL (8.5-10.1); Chloride, Blood 96 mmol/L (98-108); Creatinine, Blood 0.61 mg/dL (0.60-1.20); Globulin, Blood 3.8 g/dL (2.2-4.0); Glomerular Filtration Rate >60 (60-); Glucose, Blood 72 mg/dL (70-99); Potassium, Blood 3.5 mmol/L (3.5-5.5); Sodium, Blood 129 mmol/L (136-145); Total Protein, Blood 6.5 g/dL (6.4-8.2)
--- NOTE | 2021-02-23 06:33 | NUR ---
Pt slept well t/o noc. impulsive in getting out of bed. bed alarm on. remains tremulous and weak. ciwa scores 6-8. c/o jaw pain 9/10. medicated w/ 1mg iv dilaudid w/ good results. encouraged cough and deep breathing. call light within reach.
--- NOTE | 2021-02-23 18:36 | NUR ---
SHIFT SUMMARY: ASSUMMED CARE OF PATIENT 01/24/2021 @ 07:40, PATIENT HAS BEEN ASKING FOR MEDICATIONS APPROPRIATELY, THROUGH THE DAY HE HAS BEEN SLEEPING, AND HIS AGITATION DECREASED. HE HAS BEEN EXPERIENCING PAIN IN HIS JAW, AND BECOMES VERY TREMULOUS FROM ETOH WITHDRAWAL, AND HIS NEW RECENT FRACTURE OF HIS JAW. PT HAS BEEN RECIEVING DILAUDED WHEN HE ASKS. ADDITIONALLY, WILL GIVE ATIVAN OR LIBRIUM DEPENDING ON CIWA REPORT. PATIENT HAS BEEN ADVANCED TO A FULL LIQUID DIET HE HAS NO STATED OR PALPATED STOMACH PAIN, ALSO HAS RECEIEVED NICOTINE PATCHES, WHICH HAS DECREASED HIS ANXIETY AT THIS TIME. PATIENT HAS A BED ALARM AND A NEW FLOW OF NS AT 150mL/ HOUR.
[2021-02-24 04:44] LABS: Hematocrit 39.8 % (37.0-53.0); Hemoglobin 13.5 g/dL (13.5-17.5); Mean Corpuscular HGB 32.8 pg (26.0-34.0); Mean Corpuscular HGB Conc 33.9 g/dL (31.5-36.5); Mean Corpuscular Volume 97 fL (80-100); Platelet Count 65 K/mm3 (150-400); RDW Coefficient Variation 13.9 % (11.7-14.2); RDW Standard Deviation 49.1 fL (35.1-46.3); Red Blood Cell Count 4.12 M/mm3 (4.30-5.90); White Blood Cell Count 3.98 K/mm3 (4.00-11.30)
[2021-02-24 04:59] LABS: Alanine Aminotransfer (ALT/SGP 143 U/L (12-78); Albumin, Blood 2.8 g/dL (3.4-5.0); Albumin/Globulin Ratio 0.7 (0.8-1.8); Alk Phos 150 U/L (50-136); Anion Gap 7 mmol/L (6-16); Aspartate Aminotrans (AST/SGOT 218 U/L (12-37); Bilirubin, Total 0.9 mg/dL (0.1-1.0); Blood Urea Nitrogen 5 mg/dL (8-24); Bun/Creatinine Ratio 8.3 (12.0-20.0); CO2, Blood 27 mmol/L (21-32); Calcium, Blood 8.3 mg/dL (8.5-10.1); Chloride, Blood 94 mmol/L (98-108); Globulin, Blood 4.2 g/dL (2.2-4.0); Glomerular Filtration Rate >60 (60-); Glucose, Blood 76 mg/dL (70-99); Potassium, Blood 3.6 mmol/L (3.5-5.5); Sodium, Blood 128 mmol/L (136-145)
--- NOTE | 2021-02-24 06:06 | NUR ---
PT CONTINUES TO EXPERIENCE ANXIETY AND TREMORS BUT IS IMPROVING. REQUESTS PAIN MEDICATION FOR JAW PAIN APPROPRIATELY. 1MG IV DILAUDID GIVING ABOUT 3-4HRS PAIN COVERAGE. 1MG IV ATIVAN AND X1 DOSE OF LIBRIUM GIVEN FOR ETOH W/D. CIWA SCORES 6-11. PT REQUESTING SNACKS CONTINUOUSLY T/O NOC. MENTATION MORE CLEAR WITH INCREASED CONVERSATION. USING CALL LIGHT APPROPRIATELY. OCCASIONAL URINE RETENTION. VOIDING DESIRAE URINE. PO FLUIDS ENCOURAGED. CALL LIGHT WITHIN REACH. BED ALARM ON.
--- NOTE | 2021-02-24 18:18 | NUR ---
PATIENT A/OX4, UP WITH SBA. BED ALARM SET FOR SAFETY. MEDICATED X1 THIS SHIFT FOR CIWA OF 9 WITH LIBRIUM. PAIN BETTER CONTROLLED WITH OXYCODONE. PATIENT ABLE TO TOLERATE SOFT DIET. TELE D/C'D, PATIENT TO TRANSFER TO MEDICAL WHEN BED AVAILABLE. VSS, ON RA. MULTIPLE AREAS OF BRUISING AND SCABS IN MULTIPLE STAGES OF HEALING. SUTURES TO CHIN REMAIN C/D/I. PATIENT CALLING APPRORIATELY FOR ASSISTANCE. CALM AND COOPERATIVE WITH CARE.
--- NOTE | 2021-02-24 18:53 | NUR ---
PATIENT TO TRANSFER TO ROOM 354, REPORT CALLED TO CATIE GUILLEN
[2021-02-25 04:32] LABS: Hematocrit 34.5 % (37.0-53.0); Hemoglobin 12.1 g/dL (13.5-17.5); Mean Corpuscular HGB 33.5 pg (26.0-34.0); Mean Corpuscular HGB Conc 35.1 g/dL (31.5-36.5); Mean Corpuscular Volume 96 fL (80-100); Mean Platelet Volume 9.1 fL (9.1-12.4); Platelet Count 94 K/mm3 (150-400); RDW Coefficient Variation 13.8 % (11.7-14.2); RDW Standard Deviation 49.4 fL (35.1-46.3); Red Blood Cell Count 3.61 M/mm3 (4.30-5.90); White Blood Cell Count 4.69 K/mm3 (4.00-11.30)
[2021-02-25 05:07] LABS: Anion Gap 5 mmol/L (6-16); Blood Urea Nitrogen 5 mg/dL (8-24); Bun/Creatinine Ratio 8.9 (12.0-20.0); CO2, Blood 30 mmol/L (21-32); Calcium, Blood 8.1 mg/dL (8.5-10.1); Chloride, Blood 96 mmol/L (98-108); Creatinine, Blood 0.56 mg/dL (0.60-1.20); Glomerular Filtration Rate >60 (60-); Glucose, Blood 125 mg/dL (70-99); Potassium, Blood 3.5 mmol/L (3.5-5.5); Sodium, Blood 131 mmol/L (136-145)
--- NOTE | 2021-02-25 06:41 | NUR ---
SHIFT SUMMARY PT WAS A TRANSFER FROM U 10 AT CHANGE OF SHIFT. HE IS A&O X 3, 1PA WHEN OUT OF BED PT IS HIGH FALL RISK D/T ETOH WITHDRAWAL. PT WAS MEDICATED 3X FOR JAW PAIN DURING THE NIGHT, AND WAS MEDICATED ONCE WITH LIBRIUM FOR WITHDRAWAL. NO C/O NAUSEA OR SOB. VITAL SIGNS STABLE. NO ACUTE CHANGES IN PT CONDITION NOTED SINCE TRANSFER. WILL CONTINUE TO MONITOR AND TREAT PER EMAR UNTIL HAND OFF TO DAY SHIFT RN.
--- NOTE | 2021-02-25 18:47 | NUR ---
SHIFT SUMMARY ЮЛИЯ SCORED BETWEEN 6-8 ON CIWAH, MOSTLY TREMULOUS AND A LITTLE ANXIOUS. DENIED HEADACHE, NAUSEA, HALLUCINATIONS. MOM VISITED. AO1 TO BATHROOM, UNSTEADY ON HIS FEET, BED ALARM ON. PAIN MEDICATION CHANGED TO PERCOCET, AVAILABLE Q4 HOURS, WHICH HE WANTED FOR HIS JAW PAIN. TOOK MEDS PRESCRIBED, CALL LIGHT IN REACH, TM
--- NOTE | 2021-02-26 03:50 | NUR ---
PATIENT QUIET OVERNIGHT. SLEPT A LOT. HIGHEST CIWA SCORE OVERNIGHT WAS 5 EARLY IN THE EVENING. SCORES AFTER MIDNIGHT WERE 3 AND 4. PATIENT DID NOT REQUEST ANY PAIN MEDICATION. STATED HE HAD SOME JAW PAIN EARLY ON, BUT THIS RN EXPLAINED THAT IT WAS NOT TIME FOR HIS MEDS. AFTER THAT, PATIENT SPENT MOST OF THE TIME SLEEPING AND DID NOT REQUEST IT ANY FURTHER.
--- NOTE | 2021-02-26 18:24 | NUR ---
SHIFT SUMMARY- PT ALERT AND ORIENTED, PT HAS LOTS OF PAIN IN HIS JAW, MEDICATED FOR PAIN PRN. PAIN SEEMS WELL MANAGED CURRENTLY. PT LAST BP WAS A BIT LOW WITH SBP BEING 99. PT IN BED CALL LIGHT IN REACH, BED ALARM ON FOR SAFETY, PT IS VERY UNSTEADY ON HIS FEET AND IS IMPULSIVE. PT CALLS APPROPRIATELY FOR HIS NEEDS (I.E. PAIN MEDS, FOOD AND DRINK). IF HE NEEDS TO GO TO THE BATHROOM THE PT BECOMES IMPULSIVE AND FORGETS TO CALL. PT HAS A PILL BOTTLE IN HIS COAT POCKET IT IS BENADRYL. SPOKE TO HIM ABOUT NOT TAKING HIS HOME MEDICINE. PLACED COAT OUT OF PT REACH WELL HIS BACKPACK (HIS CIGARRETTES ARE IN THE BACKPACK) PT WILL HAVE TO CALL FOR STAFF TO GET IT AND THEN CAN BE REMINDED SMOKING IS NOT AN OPTION AT THIS TIME. PT IN BED CALL LIGHT IN REACH BED ALARM ON FOR PT SAFETY. WILL CTM AND PASS ON TO NIGHT RN IN BEDSIDE REPORT.
--- NOTE | 2021-02-27 04:21 | NUR ---
SHIFT SUMMARY ADMITTED FOR PANCREATITIS. PT HAD A FALL AND BROKE HIS MANDIBLE IN 2 PLACES. FULL CODE. IV ANTIB RX ARE SCHEDULED. PERCOCET GIVEN FOR PAIN Q 4 HOURS. HE IS A 1 ASSIST W/FWW. MECHANICAL SOFT DIET. CIWAS Q4 HAVE BEEN SCORED 2 THIS SHIFT. PLAN IS TO DC W/ANTIB RX WHEN STABLE, AND SEE OUTPT JAW SURGEON IN [place]. BRIT GARNETT GIVEN 1X FOR COUGH. HE STATES HE HAS A SORE THROAT THIS SHIFT
[2021-02-27 04:56] LABS: Hematocrit 36.9 % (37.0-53.0); Hemoglobin 12.6 g/dL (13.5-17.5); Mean Corpuscular HGB 33.5 pg (26.0-34.0); Mean Corpuscular HGB Conc 34.1 g/dL (31.5-36.5); Mean Corpuscular Volume 98 fL (80-100); Mean Platelet Volume 9.2 fL (9.1-12.4); Platelet Count 173 K/mm3 (150-400); RDW Coefficient Variation 14.5 % (11.7-14.2); RDW Standard Deviation 52.5 fL (35.1-46.3); Red Blood Cell Count 3.76 M/mm3 (4.30-5.90); White Blood Cell Count 3.57 K/mm3 (4.00-11.30)
[2021-02-27 05:15] LABS: Alanine Aminotransfer (ALT/SGP 46 U/L (12-78); Albumin, Blood 2.7 g/dL (3.4-5.0); Albumin/Globulin Ratio 0.7 (0.8-1.8); Alk Phos 108 U/L (50-136); Anion Gap 4 mmol/L (6-16); Aspartate Aminotrans (AST/SGOT 40 U/L (12-37); Bilirubin, Total 0.5 mg/dL (0.1-1.0); Blood Urea Nitrogen 6 mg/dL (8-24); Bun/Creatinine Ratio 9.2 (12.0-20.0); CO2, Blood 31 mmol/L (21-32); Calcium, Blood 8.5 mg/dL (8.5-10.1); Chloride, Blood 99 mmol/L (98-108); Creatinine, Blood 0.65 mg/dL (0.60-1.20); Globulin, Blood 3.9 g/dL (2.2-4.0); Glomerular Filtration Rate >60 (60-); Glucose, Blood 102 mg/dL (70-99); Potassium, Blood 3.7 mmol/L (3.5-5.5); Sodium, Blood 134 mmol/L (136-145); Total Protein, Blood 6.6 g/dL (6.4-8.2)
[2021-02-27] MEDS ORDERED: BENZ100A PO (11:46)
[2021-02-27] MEDS ORDERED: FOLI1 PO (11:47)
[2021-02-27] MEDS ORDERED: B-1100 M1 PO (11:48)
[2021-02-27] MEDS ORDERED: Percocet 5-3251 EACH PO (11:48)
[2021-02-27] MEDS ORDERED: CEPH500 PO (11:49)
[2021-02-27] MEDS ORDERED: Acidophilus1 EAC1 PO (11:50)
--- NOTE | 2021-02-27 12:33 | NUR ---
DISCHARGE PT WAS DISCHARGED FROM MEDICAL UNIT TO HOME AT APPROXIMATELY 1230 VIA WHEELCHAIR ACCOMPANIED BY DRAPERY INSPECTOR AND HIS MOTHER. PT WAS GIVEN INSTRUCTIONS TO FOLLOW UP WITH HIS PCP WITHIN 1 WEEK. PT WAS ALSO GIVEN AN APPOINTMENT WITH THE ORAL SURGEON TODAY AT 2:30 AND IS TO ATTEND THAT APPOINTMENT. PT WAS GIVEN INSTRUCTION TO TRANSPORTATION ENGINEER PRESCRIPTIONS AT [facility] AND WAS GIVEN EDUCATION REGARDING NEW MEDICATIONS WELL EASY TO EAT FOOD IDEAS FOR HIS FACIAL FRACTURE. PT AGREED AND SIGNED DISCHARGE PAPER WITHOUT QUESTIONS. IV WAS REMOVED, CATH TIP INTACT AND PT WAS DISCHARGED ON RA, VS STABLE.
== END 2021-02-27 12:35 | disposition home or self-care (01) | DRG 897 ==
LOC: ER 22:14 → PCU 22:15 → MEDS 02-24 19:13 → ENPENDDIS 02-27 11:16 → MEDS 02-27 12:35
PROVIDERS: Internal Medicine; Physician Assistant; ADMIT Internal Medicine
PROC: HZ2ZZZZ Detoxification Services for Substance Abuse Treatment (ICD-10-PCS; principal; 2021-02-22)
PROC: 0HQ1XZZ Repair Face Skin, External Approach (ICD-10-PCS; 2021-02-22)
DX: F10.239 Alcohol dependence with withdrawal, unspecified (principal); S02.641A Fracture of ramus of right mandible, initial encounter for closed fracture; S02.621A Fracture of subcondylar process of right mandible, initial encounter for closed fracture; S02.622A Fracture of subcondylar process of left mandible, initial encounter for closed fracture; E87.1 Hypo-osmolality and hyponatremia; S01.81XA Laceration without foreign body of other part of head, initial encounter; F32.9 Major depressive disorder, single episode, unspecified; E86.0 Dehydration; K70.10 Alcoholic hepatitis without ascites; F41.9 Anxiety disorder, unspecified; J45.909 Unspecified asthma, uncomplicated; F17.210 Nicotine dependence, cigarettes, uncomplicated; Z71.41 Alcohol abuse counseling and surveillance of alcoholic; E03.9 Hypothyroidism, unspecified; Z88.5 Allergy status to narcotic agent; Z90.89 Acquired absence of other organs; Z98.890 Other specified postprocedural states; Z79.899 Other long term (current) drug therapy; W18.39XA Other fall on same level, initial encounter
CPT/HCPCS: 12011; 36415; 51701; 70450; 70486; 74177; 80048; 80053; 80061; 81001; 83690; 83735; 85025; 85027; 87086; 90714; 96361; 96372; 96374; 96375; 96376; 97116; 97161; 97530; 99285-25; A9270; G0378; G0480; J0690; J1170; J1650; J2060; J2270; J2405; J3010; J3411; J3475; J7030; J7042; J7050; J7120; Q9967

== ENCOUNTER 2021-04-05 10:14 | Emergency (ER) | payer BC, OTHER ==
[~2021-04-05] VITALS: Ht 185.4 cm; Wt 65.8 kg
[~2021-04-05 10:14] MED LIST changes: +Acidophilus1 EAC1 PO; +B-1100 M1 PO; +CEPH500 PO; +FOLI1 PO; +Percocet 5-3251 EACH PO
[2021-04-05 10:45] LABS: BASOPHILS ABSOLUTE AUTO 0.04 K/mm3 (0.00-0.23); BASOPHILS PERCENT AUTO 1 % (0-2); EOSINOPHILS ABSOLUTE AUTO 0.05 K/mm3 (0.00-0.68); EOSINOPHILS PERCENT AUTO 1 % (0-6); Hematocrit 44.9 % (37.0-53.0); Hemoglobin 15.8 g/dL (13.5-17.5); IMMATURE GRAN ABSOLUTE AUTO 0.01 K/mm3 (0.00-0.10); IMMATURE GRAN PERCENT AUTO 0 % (0-1); LYMPHOCYTES ABSOLUTE AUTO 2.05 K/mm3 (0.84-5.20); LYMPHOCYTES PERCENT AUTO 26 % (21-46); MONOCYTES ABSOLUTE AUTO 0.66 K/mm3 (0.16-1.47); MONOCYTES PERCENT AUTO 9 % (4-13); Mean Corpuscular HGB 32.8 pg (26.0-34.0); Mean Corpuscular HGB Conc 35.2 g/dL (31.5-36.5); Mean Corpuscular Volume 93 fL (80-100); Mean Platelet Volume 8.2 fL (9.1-12.4); NEUTROPHILS ABSOLUTE AUTO 4.99 K/mm3 (1.96-9.15); NEUTROPHILS PERCENT AUTO 64 % (41-73); Platelet Count 225 K/mm3 (150-400); RDW Coefficient Variation 12.4 % (11.7-14.2); RDW Standard Deviation 43.2 fL (35.1-46.3); Red Blood Cell Count 4.82 M/mm3 (4.30-5.90)
[2021-04-05 11:02] LABS: Magnesium, Blood 2.5 mg/dL (1.6-2.4)
[2021-04-05 11:03] LABS: Alanine Aminotransfer (ALT/SGP 119 U/L (12-78); Albumin/Globulin Ratio 0.9 (0.8-1.8); Alk Phos 76 U/L (50-136); Anion Gap 12 mmol/L (6-16); Aspartate Aminotrans (AST/SGOT 93 U/L (12-37); Bilirubin, Total 0.4 mg/dL (0.1-1.0); Blood Urea Nitrogen 7 mg/dL (8-24); Bun/Creatinine Ratio 12.7 (12.0-20.0); CO2, Blood 25 mmol/L (21-32); Calcium, Blood 8.8 mg/dL (8.5-10.1); Chloride, Blood 94 mmol/L (98-108); Creatinine, Blood 0.55 mg/dL (0.60-1.20); Globulin, Blood 4.3 g/dL (2.2-4.0); Glomerular Filtration Rate >60 (60-); Glucose, Blood 124 mg/dL (70-99); Potassium, Blood 3.4 mmol/L (3.5-5.5); Sodium, Blood 131 mmol/L (136-145); Total Protein, Blood 8.3 g/dL (6.4-8.2)
[2021-04-05 11:20] LABS: Ethanol (Alcohol), Blood, Med 344 mg/dL
== END 2021-04-05 15:07 | disposition home or self-care (01) ==
LOC: ER 10:14
PROVIDERS: Emergency Medicine
DX: K29.20 Alcoholic gastritis without bleeding (principal); F10.239 Alcohol dependence with withdrawal, unspecified; J45.909 Unspecified asthma, uncomplicated; E03.9 Hypothyroidism, unspecified; F17.210 Nicotine dependence, cigarettes, uncomplicated; Z88.5 Allergy status to narcotic agent; Z79.899 Other long term (current) drug therapy
CPT/HCPCS: 80053; 83690; 83735; 85025; 96374; 96375; 99285-25; A9270; G0480; J0780; J1200; J7030

== ENCOUNTER 2021-05-24 15:57 | Emergency (ER) | payer OTHER ==
[~2021-05-24] VITALS: Ht 182.9 cm; Wt 68.0 kg
[2021-05-24 16:40] LABS: BASOPHILS ABSOLUTE AUTO 0.05 K/mm3 (0.00-0.23); BASOPHILS PERCENT AUTO 1 % (0-2); EOSINOPHILS ABSOLUTE AUTO 0.29 K/mm3 (0.00-0.68); EOSINOPHILS PERCENT AUTO 4 % (0-6); Hematocrit 47.8 % (37.0-53.0); IMMATURE GRAN ABSOLUTE AUTO 0.01 K/mm3 (0.00-0.10); IMMATURE GRAN PERCENT AUTO 0 % (0-1); LYMPHOCYTES ABSOLUTE AUTO 3.03 K/mm3 (0.84-5.20); LYMPHOCYTES PERCENT AUTO 44 % (21-46); MONOCYTES ABSOLUTE AUTO 0.51 K/mm3 (0.16-1.47); MONOCYTES PERCENT AUTO 7 % (4-13); Mean Corpuscular HGB 32.4 pg (26.0-34.0); Mean Corpuscular HGB Conc 35.6 g/dL (31.5-36.5); Mean Corpuscular Volume 91 fL (80-100); Mean Platelet Volume 9.7 fL (9.1-12.4); NEUTROPHILS ABSOLUTE AUTO 2.98 K/mm3 (1.96-9.15); NEUTROPHILS PERCENT AUTO 44 % (41-73); Platelet Count 248 K/mm3 (150-400); RDW Coefficient Variation 12.9 % (11.7-14.2); RDW Standard Deviation 43.4 fL (35.1-46.3); Red Blood Cell Count 5.25 M/mm3 (4.30-5.90); White Blood Cell Count 6.87 K/mm3 (4.00-11.30)
[2021-05-24 18:04] LABS: Alanine Aminotransfer (ALT/SGP 54 U/L (12-78); Albumin, Blood 4.2 g/dL (3.4-5.0); Alk Phos 98 U/L (50-136); Anion Gap 9 mmol/L (6-16); Aspartate Aminotrans (AST/SGOT 67 U/L (12-37); Bilirubin, Total 0.5 mg/dL (0.1-1.0); Blood Urea Nitrogen 14 mg/dL (8-24); Bun/Creatinine Ratio 22.4 (12.0-20.0); CO2, Blood 25 mmol/L (21-32); Calcium, Blood 8.6 mg/dL (8.5-10.1); Chloride, Blood 109 mmol/L (98-108); Creatinine, Blood 0.63 mg/dL (0.60-1.20); Globulin, Blood 4.1 g/dL (2.2-4.0); Glomerular Filtration Rate >60 (60-); Glucose, Blood 98 mg/dL (70-99); Potassium, Blood 3.7 mmol/L (3.5-5.5); Sodium, Blood 143 mmol/L (136-145); Total Protein, Blood 8.3 g/dL (6.4-8.2)
[2021-05-24 18:17] LABS: Ethanol (Alcohol), Blood, Med 346 mg/dL
[2021-05-24] MEDS ORDERED: CHLO25 PO (18:50)
== END 2021-05-24 18:55 | disposition home or self-care (01) ==
LOC: ER 15:57
PROVIDERS: Physician Assistant
DX: F10.139 Alcohol abuse with withdrawal, unspecified (principal); J45.909 Unspecified asthma, uncomplicated; F17.210 Nicotine dependence, cigarettes, uncomplicated; F41.9 Anxiety disorder, unspecified; Z88.5 Allergy status to narcotic agent; Y90.8 Blood alcohol level of 240 mg/100 ml or more
CPT/HCPCS: 36415; 80053; 85025; 99285; A9270; G0480

== ENCOUNTER 2021-05-25 22:55 | Emergency (ER) | payer OTHER ==
[~2021-05-25] VITALS: Ht 182.9 cm; Wt 68.0 kg
== END 2021-05-26 00:50 | disposition home or self-care (01) ==
LOC: ER 22:55
DX: F10.239 Alcohol dependence with withdrawal, unspecified (principal); F17.210 Nicotine dependence, cigarettes, uncomplicated; J45.909 Unspecified asthma, uncomplicated; Z88.5 Allergy status to narcotic agent
CPT/HCPCS: 99284; A9270

== ENCOUNTER 2021-06-06 20:54 | Observation (INO) | payer OTHER ==
[~2021-06-06] VITALS: Ht 188 cm; Wt 59.0 kg
[2021-06-06 21:21] LABS: BASOPHILS ABSOLUTE AUTO 0.07 K/mm3 (0.00-0.23); BASOPHILS PERCENT AUTO 1 % (0-2); EOSINOPHILS ABSOLUTE AUTO 0.07 K/mm3 (0.00-0.68); EOSINOPHILS PERCENT AUTO 1 % (0-6); Hematocrit 47.2 % (37.0-53.0); Hemoglobin 16.6 g/dL (13.5-17.5); IMMATURE GRAN ABSOLUTE AUTO 0.02 K/mm3 (0.00-0.10); IMMATURE GRAN PERCENT AUTO 0 % (0-1); LYMPHOCYTES ABSOLUTE AUTO 2.26 K/mm3 (0.84-5.20); LYMPHOCYTES PERCENT AUTO 30 % (21-46); MONOCYTES ABSOLUTE AUTO 1.01 K/mm3 (0.16-1.47); MONOCYTES PERCENT AUTO 14 % (4-13); Mean Corpuscular HGB 32.2 pg (26.0-34.0); Mean Corpuscular HGB Conc 35.2 g/dL (31.5-36.5); Mean Corpuscular Volume 92 fL (80-100); Mean Platelet Volume 7.9 fL (9.1-12.4); NEUTROPHILS ABSOLUTE AUTO 4.01 K/mm3 (1.96-9.15); NEUTROPHILS PERCENT AUTO 54 % (41-73); Platelet Count 280 K/mm3 (150-400); RDW Coefficient Variation 13.4 % (11.7-14.2); RDW Standard Deviation 45.7 fL (35.1-46.3); Red Blood Cell Count 5.16 M/mm3 (4.30-5.90); White Blood Cell Count 7.44 K/mm3 (4.00-11.30)
[2021-06-06 21:45] LABS: Alanine Aminotransfer (ALT/SGP 223 U/L (12-78); Albumin, Blood 4.3 g/dL (3.4-5.0); Alk Phos 84 U/L (50-136); Anion Gap 16 mmol/L (6-16); Aspartate Aminotrans (AST/SGOT 306 U/L (12-37); Bilirubin, Total 0.3 mg/dL (0.1-1.0); Blood Urea Nitrogen 13 mg/dL (8-24); Bun/Creatinine Ratio 16.7 (12.0-20.0); CO2, Blood 23 mmol/L (21-32); Calcium, Blood 8.5 mg/dL (8.5-10.1); Chloride, Blood 103 mmol/L (98-108); Creatinine, Blood 0.78 mg/dL (0.60-1.20); Globulin, Blood 4.1 g/dL (2.2-4.0); Glomerular Filtration Rate >60 (60-); Glucose, Blood 92 mg/dL (70-99); Potassium, Blood 3.7 mmol/L (3.5-5.5); Salicylate 4.6 mg/dL (2.8-20.0); Sodium, Blood 142 mmol/L (136-145); Total Protein, Blood 8.4 g/dL (6.4-8.2)
[2021-06-06 21:47] LABS: Magnesium, Blood 2.3 mg/dL (1.6-2.4)
[2021-06-06 22:01] LABS: Ethanol (Alcohol), Blood, Med 495 mg/dL
[2021-06-06 22:04] LABS: Acetaminophen, Random <2.0 ug/mL (10.0-30.0)
[2021-06-06 23:17] LABS: Source, Urine Catheter
[2021-06-06 23:21] LABS: Bilirubin, Urine Neg (Neg); Blood, Urine 3+ (Neg); Glucose Qualitative, Urine Neg (Neg); Ketones, Urine Neg (Neg); Leukocyte Esterase, Urine Neg (Neg); Nitrite, Urine Neg (Neg); Protein, Urine 3+ (Neg); Urobilinogen, Urine NORM (Normal)
[2021-06-06 23:25] LABS: Appearance, Urine Clear (Clear); Color, Urine Yellow (P-Yellow)
[2021-06-06 23:27] LABS: Amorphous Light (0-Heavy); Bacteria Rare /hpf; Mucus Light (0-Heavy); Red Blood Cells, Urine 0-2 /hpf (0-2); Squamous Epithelial Cells Few /hpf (Few); White Blood Cells, Urine Rare /hpf (0-5)
[2021-06-06 23:39] LABS: U Amphetamine Screen Not Detected; U Barbituate Screen Not Detected; U Benzodiazapine Screen DETECTED; U Buprenorphine Screen Not Detected; U Cannabinoids Screen Not Detected; U Cocaine Screen Not Detected; U Methadone Screen Not Detected; U Methamphetamine Screen Not Detected; U Opiates Screen Not Detected; U Oxycodone Screen Not Detected; U Phencyclidine Screen Not Detected; U Propoxyphene Screen Not Detected
[2021-06-07 02:29] LABS: SARS-Cov-2 (COVID-19) PCR, MMC NEGATIVE (NEGATIVE)
[2021-06-07] MEDS ORDERED: FOLI1 PO (11:51)
[2021-06-07] MEDS ORDERED: B-1100 M1 PO (11:51)
[2021-06-07] MEDS ORDERED: DIAZ5 PO (12:16)
== END 2021-06-07 12:45 | disposition home or self-care (01) ==
LOC: ER 20:54 → EOR 20:55
PROVIDERS: Physician Assistant; ADMIT Emergency Medicine
DX: F10.229 Alcohol dependence with intoxication, unspecified (principal); R45.851 Suicidal ideations; I48.91 Unspecified atrial fibrillation; F17.210 Nicotine dependence, cigarettes, uncomplicated; J45.909 Unspecified asthma, uncomplicated; E03.9 Hypothyroidism, unspecified; Y90.8 Blood alcohol level of 240 mg/100 ml or more; Z88.5 Allergy status to narcotic agent; Z20.822 Contact with and (suspected) exposure to COVID-19
CPT/HCPCS: 36415; 80053; 81001; 82140; 83690; 83735; 84484; 85025; 93005; 93010; 96361; 96374; 96375; 96376; 99285-25; A9270; G0378; G0480; J1200; J2060; J2405; J2550; J7030; U0004

== ENCOUNTER 2021-07-01 23:09 | Inpatient (IN) | payer OTHER ==
[~2021-07-01] VITALS: Ht 182.9 cm; Wt 72.6 kg
[~2021-07-01 23:09] MED LIST changes: +DIAZ5 PO
[2021-07-01 23:47] LABS: BASOPHILS ABSOLUTE AUTO 0.04 K/mm3 (0.00-0.23); BASOPHILS PERCENT AUTO 1 % (0-2); EOSINOPHILS ABSOLUTE AUTO 0.14 K/mm3 (0.00-0.68); EOSINOPHILS PERCENT AUTO 2 % (0-6); Hematocrit 48.1 % (37.0-53.0); Hemoglobin 16.9 g/dL (13.5-17.5); IMMATURE GRAN ABSOLUTE AUTO 0.02 K/mm3 (0.00-0.10); IMMATURE GRAN PERCENT AUTO 0 % (0-1); LYMPHOCYTES ABSOLUTE AUTO 1.84 K/mm3 (0.84-5.20); LYMPHOCYTES PERCENT AUTO 22 % (21-46); MONOCYTES ABSOLUTE AUTO 0.52 K/mm3 (0.16-1.47); MONOCYTES PERCENT AUTO 6 % (4-13); Mean Corpuscular HGB 31.6 pg (26.0-34.0); Mean Corpuscular HGB Conc 35.1 g/dL (31.5-36.5); Mean Corpuscular Volume 90 fL (80-100); Mean Platelet Volume 8.4 fL (9.1-12.4); NEUTROPHILS ABSOLUTE AUTO 6.01 K/mm3 (1.96-9.15); NEUTROPHILS PERCENT AUTO 70 % (41-73); Platelet Count 178 K/mm3 (150-400); RDW Coefficient Variation 13.5 % (11.7-14.2); RDW Standard Deviation 44.6 fL (35.1-46.3); Red Blood Cell Count 5.35 M/mm3 (4.30-5.90); White Blood Cell Count 8.57 K/mm3 (4.00-11.30)
[2021-07-02 00:07] LABS: Alanine Aminotransfer (ALT/SGP 259 U/L (12-78); Albumin, Blood 4.1 g/dL (3.4-5.0); Alk Phos 79 U/L (50-136); Anion Gap 11 mmol/L (6-16); Aspartate Aminotrans (AST/SGOT 236 U/L (12-37); Bilirubin, Total 0.7 mg/dL (0.1-1.0); Blood Urea Nitrogen 10 mg/dL (8-24); Bun/Creatinine Ratio 15.2 (12.0-20.0); CO2, Blood 24 mmol/L (21-32); Chloride, Blood 101 mmol/L (98-108); Creatinine, Blood 0.66 mg/dL (0.60-1.20); Glomerular Filtration Rate >60 (60-); Glucose, Blood 95 mg/dL (70-99); Potassium, Blood 4.1 mmol/L (3.5-5.5); Sodium, Blood 136 mmol/L (136-145); Total Protein, Blood 8.1 g/dL (6.4-8.2)
[2021-07-02 00:16] LABS: Ethanol (Alcohol), Blood, Med 490 mg/dL
--- NOTE | 2021-07-02 06:43 | NUR ---
REPORT RECIEVED FROM FLOYD ZARAGOZA RN AT 0625 AND PT T/F TO ROOM 327 AT 0635. PT ORIENTED TO ROOM AND CALL SYSTEM AND IS AWARE TO CALL FOR ASSIST OOB. NO DISTRESS OBSERVED UPON T/F. HE'S A/OX4, DROWSY AND COOPERATIVE W/CARE. WILL REPORT TO DAY RN.
[2021-07-02 07:11] LABS: SARS-Cov-2 (COVID-19) PCR, MMC NEGATIVE (NEGATIVE)
--- NOTE | 2021-07-02 19:40 | NUR ---
SHIFT SUMMARY: NO ACUTE CHANGES TO REPORT THIS SHIFT. PT A&O; ANXIOUS; COOPERATIVE WITH CARE. CIWA Q4; MEDICATED FOR STABLE WITHDRAWAL PER EMAR; LAST ETOH APPROX 24 HOURS AGO; CONT BIOX IN PLACE. BANANA BAG QD. REPORT GIVEN TO ONCOMING RN.
--- NOTE | 2021-07-03 04:45 | NUR ---
SUMMARY PT REPORTS CONTINUED TREMORS, SOTELO AND ANXIETY. PT TX PER CIWA ORDERS. PT ABLE TO REST BUT UNABLE TO SLEEP. PT REPORTS CHRONIC INSOMNIA. CIWA REMAIN >8. PT CURRENTLY RESTING IN NO DISTRESS. CALL LIGHT IN REACH.
[2021-07-03 05:12] LABS: BASOPHILS ABSOLUTE AUTO 0.01 K/mm3 (0.00-0.23); BASOPHILS PERCENT AUTO 0 % (0-2); EOSINOPHILS PERCENT AUTO 0 % (0-6); Hematocrit 44.3 % (37.0-53.0); Hemoglobin 15.4 g/dL (13.5-17.5); IMMATURE GRAN ABSOLUTE AUTO 0.02 K/mm3 (0.00-0.10); IMMATURE GRAN PERCENT AUTO 0 % (0-1); LYMPHOCYTES ABSOLUTE AUTO 0.73 K/mm3 (0.84-5.20); LYMPHOCYTES PERCENT AUTO 7 % (21-46); MONOCYTES ABSOLUTE AUTO 0.49 K/mm3 (0.16-1.47); MONOCYTES PERCENT AUTO 5 % (4-13); Mean Corpuscular HGB 31.7 pg (26.0-34.0); Mean Corpuscular HGB Conc 34.8 g/dL (31.5-36.5); Mean Corpuscular Volume 91 fL (80-100); Mean Platelet Volume 8.8 fL (9.1-12.4); NEUTROPHILS PERCENT AUTO 88 % (41-73); Platelet Count 126 K/mm3 (150-400); RDW Coefficient Variation 13.1 % (11.7-14.2); Red Blood Cell Count 4.86 M/mm3 (4.30-5.90); White Blood Cell Count 10.05 K/mm3 (4.00-11.30)
[2021-07-03 05:42] LABS: Alanine Aminotransfer (ALT/SGP 249 U/L (12-78); Albumin, Blood 3.5 g/dL (3.4-5.0); Albumin/Globulin Ratio 0.9 (0.8-1.8); Alk Phos 86 U/L (50-136); Anion Gap 4 mmol/L (6-16); Aspartate Aminotrans (AST/SGOT 186 U/L (12-37); Bilirubin, Total 1.3 mg/dL (0.1-1.0); Blood Urea Nitrogen 12 mg/dL (8-24); Bun/Creatinine Ratio 17.6 (12.0-20.0); CO2, Blood 28 mmol/L (21-32); Calcium, Blood 8.8 mg/dL (8.5-10.1); Chloride, Blood 99 mmol/L (98-108); Creatinine, Blood 0.68 mg/dL (0.60-1.20); Glomerular Filtration Rate >60 (60-); Glucose, Blood 108 mg/dL (70-99); Magnesium, Blood 2.9 mg/dL (1.6-2.4); Phosphorus, Blood 3.8 mg/dL (2.5-4.9); Potassium, Blood 4.5 mmol/L (3.5-5.5); Sodium, Blood 131 mmol/L (136-145); Total Protein, Blood 7.5 g/dL (6.4-8.2)
--- NOTE | 2021-07-03 13:17 | NUR ---
07/03/21- PER TIEN LOWRY GREATER THAT 8 (18 AT 10AM) PT HAS ATTEMPTED TREATMENT 3 TIMES SERENITY, NEED ALCOHOL RECOVERY HELP, WANT HIM TO GET INTO [facility], MAKE APPT WITH MAURY LUNA FOR THERAPY. PT WILL BE STABLE FOR D/C TOMORROW. -KASH
--- NOTE | 2021-07-03 17:37 | NUR ---
TOOK OVER CARE OF THIS PT AT 1040 WITH XOCHITL HADDAD GIVING REPORT. PT WAS SLEEPING A LOT EARLIER, BUT HAS WOKE UP A LOT THIS AFTERNOON TO THE POINT PT THINKS HE SHOULD DISCHARGE. THIS BILLET CUTTER HAS TRIED TO GIVE PT THE REASONS AND NEED TO STAY ANOTHER NIGHT TO HAVE WITHDRAWL SYMTOMS MONITORED. PT REPORTED NEED FOR NICOTINE PATCH AND DR UERNA ADDED MEDICATION TO EMAR. PT VERY ANXIOUS AND HAS BEEN TREATED PER EMAR WITH CIWA OF 13. CALL LIGHT IS WITHIN REACH AND WILL CONTINUE TO MONITOR.
--- NOTE | 2021-07-04 04:59 | NUR ---
ELECTRIC CAR OPERATOR SUMMARY PT A/O X4. CIWA SCORES HAS BEEN STABLE, SCORE OF 6 WHILE AWAKE. TELE RANGES FROM SR IN THE 70'S TO S. TACH INT HE 110'S. PT REQUESTED IV ATIVAN, HOWEVER PT'S CIWA SCORE DID NOT INDICATE NEED FOR PRN ATIVAN PER ORDER. SCHEDULED ATIVAN GIVEN. PT EXPRESSED TO THIS RN THAT HE IS EAGER TO GO HOME, HAS 4 KIDS HE NEEDS TO TAKE CARE OF. PLEASANT AND COOPERATIVE. CALL LIGHT WITHIN REACH, WILL CONTINUE TO MONITOR.
[2021-07-04] MEDS ORDERED: MULVITA PO (10:17)
[2021-07-04] MEDS ORDERED: ACAMPROSATE CA333 MG PO (10:18)
[2021-07-04] MEDS ORDERED: Xanax Xr2 MG PO (10:19)
[2021-07-04] MEDS ORDERED: ALPR1 PO (10:19)
--- NOTE | 2021-07-04 11:48 | NUR ---
Spoke with pt about discharge. Pt states that he is in the process of selling his home. He currently lives with his parents. He is working through divorce and child support/custody. He reports that his 2 oldest kids live with him and the younger ones live with ex-. Pt is able to return back to his parents home. Pt reports need with social supports such as housing assistance and alcohol treatment. He does not want to work with [facility] due to their policy regarding certain medications that he has taken due to anxiety. Discussed inpatient treatment, pt states that this is not an option due to selling home and children. Pt reports that he has been calling [facility] to find treatment options and feels like he is not getting answers. He feels like he doesn't want to "waste doctor's time." (pin to top) Appt with Curry Dhillon 07/06/21 at 11. Appt with Curry French 07/06/21 @ 12. Will contact [facility] clinic to help pt get resources for social service issues such as housing, addiction treatment, etc.
== END 2021-07-04 12:00 | disposition home or self-care (01) | DRG 896 ==
LOC: ER 23:09 → MEDS 23:10
PROVIDERS: Emergency Medicine; Internal Medicine; ADMIT Internal Medicine
DX: F10.229 Alcohol dependence with intoxication, unspecified (principal); J96.01 Acute respiratory failure with hypoxia; E87.1 Hypo-osmolality and hyponatremia; Z20.822 Contact with and (suspected) exposure to COVID-19; F10.239 Alcohol dependence with withdrawal, unspecified; K70.10 Alcoholic hepatitis without ascites; F41.1 Generalized anxiety disorder; Y90.8 Blood alcohol level of 240 mg/100 ml or more; F32.9 Major depressive disorder, single episode, unspecified; J45.909 Unspecified asthma, uncomplicated; E03.9 Hypothyroidism, unspecified; Z98.890 Other specified postprocedural states; Z88.5 Allergy status to narcotic agent; Z79.899 Other long term (current) drug therapy
CPT/HCPCS: 36415; 71045; 80053; 83735; 84100; 85025; 93005; 93010; 94640; 94762; 96372; 96374; 96375; 96376; 99285-25; A9270; C9113; G0378; G0480; J1200; J1650; J2060; J2405; J2560; J2930; J3411; J3475; J7042; U0004

== ENCOUNTER → 2021-08-22 | Outpatient (CLI) | payer OTHER ==
[~2021-08-22] MED LIST changes: +ACAMPROSATE CA333 MG PO; +MULVITA PO; +Xanax Xr2 MG PO
[2021-08-22 18:19] LABS: BASOPHILS ABSOLUTE AUTO 0.09 K/mm3 (0.00-0.23); BASOPHILS PERCENT AUTO 2 % (0-2); EOSINOPHILS ABSOLUTE AUTO 0.22 K/mm3 (0.00-0.68); EOSINOPHILS PERCENT AUTO 4 % (0-6); Hematocrit 45.3 % (37.0-53.0); Hemoglobin 15.5 g/dL (13.5-17.5); IMMATURE GRAN ABSOLUTE AUTO 0.02 K/mm3 (0.00-0.10); IMMATURE GRAN PERCENT AUTO 0 % (0-1); LYMPHOCYTES PERCENT AUTO 35 % (21-46); MONOCYTES ABSOLUTE AUTO 0.83 K/mm3 (0.16-1.47); MONOCYTES PERCENT AUTO 16 % (4-13); Mean Corpuscular HGB Conc 34.2 g/dL (31.5-36.5); Mean Corpuscular Volume 94 fL (80-100); NEUTROPHILS ABSOLUTE AUTO 2.31 K/mm3 (1.96-9.15); NEUTROPHILS PERCENT AUTO 43 % (41-73); RDW Coefficient Variation 15.1 % (11.7-14.2); RDW Standard Deviation 52.5 fL (35.1-46.3); Red Blood Cell Count 4.84 M/mm3 (4.30-5.90); White Blood Cell Count 5.37 K/mm3 (4.00-11.30)
[2021-08-22 18:23] LABS: Mean Platelet Volume 8.8 fL (9.1-12.4); Platelet Count 306 K/mm3 (150-400)
[2021-08-22 18:29] LABS: Percent Saturation 24.6 % (20.0-50.0)
[2021-08-22 18:30] LABS: Alanine Aminotransfer (ALT/SGP 38 U/L (12-78); Albumin, Blood 3.8 g/dL (3.4-5.0); Albumin/Globulin Ratio 0.9 (0.8-1.8); Alk Phos 57 U/L (50-136); Anion Gap 8 mmol/L (6-16); Aspartate Aminotrans (AST/SGOT 21 U/L (12-37); Bilirubin, Total 0.1 mg/dL (0.1-1.0); Blood Urea Nitrogen 3 mg/dL (8-24); Bun/Creatinine Ratio 4.7 (12.0-20.0); CO2, Blood 24 mmol/L (21-32); Calcium, Blood 8.6 mg/dL (8.5-10.1); Chloride, Blood 112 mmol/L (98-108); Cholesterol 183 mg/dL (50-200); Creatinine, Blood 0.64 mg/dL (0.60-1.20); Globulin, Blood 4.3 g/dL (2.2-4.0); Glomerular Filtration Rate >60 (60-); Glucose, Blood 91 mg/dL (70-99); Potassium, Blood 3.8 mmol/L (3.5-5.5); Sodium, Blood 144 mmol/L (136-145); Total Protein, Blood 8.1 g/dL (6.4-8.2); Triglycerides 97 mg/dL (30-140); Very Low Density Lipoprot Chol 19 mg/dL (6-28)
[2021-08-22 18:55] LABS: CHOL/HDL RATIO 3.2; HDL Cholesterol 58 mg/dL (>39); LDL/HDL RATIO 1.8; Low Density Lipoprotein Chol 106 mg/dL (0-110); Thyroid Stimulating Hormone 0.453 uIU/mL (0.360-4.800)
== END | disposition home or self-care (01) ==
LOC: LAB SHORT 15:10 → LAB 15:10
PROVIDERS: Nurse Practitioner Family
DX: F10.180 Alcohol abuse with alcohol-induced anxiety disorder (principal)
CPT/HCPCS: 80053; 80061; 82607; 82728; 82746; 83036; 83540; 83550; 84443; 85025; 86803

== ENCOUNTER → 2024-06-14 | Outpatient (CLI) | payer OTHER ==
[2024-06-14 17:47] LABS: BASOPHILS ABSOLUTE AUTO 0.03 K/mm3 (0.00-0.23); BASOPHILS PERCENT AUTO 0 % (0-2); EOSINOPHILS ABSOLUTE AUTO 0.22 K/mm3 (0.00-0.68); EOSINOPHILS PERCENT AUTO 3 % (0-6); Hematocrit 47.8 % (37.0-53.0); Hemoglobin 16.2 g/dL (13.5-17.5); IMMATURE GRAN ABSOLUTE AUTO 0.02 K/mm3 (0.00-0.10); IMMATURE GRAN PERCENT AUTO 0 % (0-1); LYMPHOCYTES ABSOLUTE AUTO 1.38 K/mm3 (0.84-5.20); LYMPHOCYTES PERCENT AUTO 18 % (21-46); MONOCYTES ABSOLUTE AUTO 0.69 K/mm3 (0.16-1.47); MONOCYTES PERCENT AUTO 9 % (4-13); Mean Corpuscular HGB 31.6 pg (26.0-34.0); Mean Corpuscular HGB Conc 33.9 g/dL (31.5-36.5); Mean Corpuscular Volume 93 fL (80-100); NEUTROPHILS ABSOLUTE AUTO 5.19 K/mm3 (1.96-9.15); NEUTROPHILS PERCENT AUTO 69 % (41-73); RDW Coefficient Variation 14.2 % (11.7-14.2); RDW Standard Deviation 49.4 fL (35.1-46.3); Red Blood Cell Count 5.12 M/mm3 (4.30-5.90); White Blood Cell Count 7.53 K/mm3 (4.00-11.30)
[2024-06-14 17:57] LABS: Alanine Aminotransfer (ALT/SGP 27 U/L (12-78); Albumin, Blood 4.3 g/dL (3.4-5.0); Alk Phos 73 U/L (50-136); Anion Gap 10 mmol/L (3-11); Aspartate Aminotrans (AST/SGOT 23 U/L (12-37); Blood Urea Nitrogen 10 mg/dL (8-24); Bun/Creatinine Ratio 12.5 (12.0-20.0); CHOL/HDL RATIO 3.9; CO2, Blood 25 mmol/L (21-32); Calcium, Blood 9.7 mg/dL (8.5-10.1); Chloride, Blood 106 mmol/L (98-108); Cholesterol 186 mg/dL (50-200); Globulin, Blood 4.3 g/dL (2.2-4.0); Glomerular Filtration Rate 114 (60-); Glucose, Blood 94 mg/dL (70-99); HDL Cholesterol 48 mg/dL (>39); LDL/HDL RATIO 2.3; Low Density Lipoprotein Chol 110 mg/dL (0-110); Potassium, Blood 3.9 mmol/L (3.5-5.5); Sodium, Blood 137 mmol/L (136-145); Total Protein, Blood 8.6 g/dL (6.4-8.2); Triglycerides 142 mg/dL (30-160); Very Low Density Lipoprot Chol 28 mg/dL (6-32)
== END ==
LOC: LAB 16:26 → LAB SHORT 16:26
PROVIDERS: Nurse Practitioner Family
DX: I10 Essential (primary) hypertension (principal); E55.9 Vitamin D deficiency, unspecified
CPT/HCPCS: 80053; 80061; 82306; 84443; 85025

== ENCOUNTER 2025-02-25 15:14 | Emergency (ER) | payer OTHER ==
[~2025-02-25] VITALS: Ht 182.9 cm; Wt 68.0 kg
[2025-02-26 03:00] VITALS: BP 120/80
== END 2025-02-26 04:00 | disposition home or self-care (01) ==
LOC: ER 15:14
DX: F10.10 Alcohol abuse, uncomplicated (principal); J45.909 Unspecified asthma, uncomplicated; E03.9 Hypothyroidism, unspecified; F17.210 Nicotine dependence, cigarettes, uncomplicated; Z79.899 Other long term (current) drug therapy; Z88.5 Allergy status to narcotic agent

== ENCOUNTER 2025-06-11 17:15 | Emergency (ER) | payer OTHER ==
[~2025-06-11] VITALS: Ht 182.9 cm; Wt 72.6 kg
[2025-06-11 17:19] VITALS: BP 131/102
[2025-06-11 17:44] LABS: BASOPHILS ABSOLUTE AUTO 0.03 K/mm3 (0.00-0.23); BASOPHILS PERCENT AUTO 1 % (0-2); EOSINOPHILS ABSOLUTE AUTO 0.25 K/mm3 (0.00-0.68); EOSINOPHILS PERCENT AUTO 4 % (0-6); Hematocrit 44.8 % (37.0-53.0); Hemoglobin 15.5 g/dL (13.5-17.5); IMMATURE GRAN ABSOLUTE AUTO 0.00 K/mm3 (0.00-0.10); IMMATURE GRAN PERCENT AUTO 0 % (0-1); LYMPHOCYTES ABSOLUTE AUTO 2.04 K/mm3 (0.84-5.20); LYMPHOCYTES PERCENT AUTO 35 % (21-46); MONOCYTES ABSOLUTE AUTO 0.59 K/mm3 (0.16-1.47); MONOCYTES PERCENT AUTO 10 % (4-13); Mean Corpuscular HGB Conc 34.6 g/dL (31.5-36.5); Mean Corpuscular Volume 89 fL (80-100); NEUTROPHILS ABSOLUTE AUTO 2.89 K/mm3 (1.96-9.15); NEUTROPHILS PERCENT AUTO 50 % (41-73); NRBC ABSOLUTE 0.00 K/mm3 (0.00-0.02); NRBC Auto 0.0 /100 WBC (0.0-0.2); Platelet Count 159 K/mm3 (150-400); RDW Coefficient Variation 13.4 % (11.7-14.2); RDW Standard Deviation 44.1 fL (35.1-46.3)
[2025-06-11 18:29] LABS: Alanine Aminotransfer (ALT/SGP 92.0 U/L (12-78); Albumin, Blood 3.5 g/dL (3.4-5.0); Albumin/Globulin Ratio 0.9 (0.8-1.8); Anion Gap 9.0 mmol/L (3-11); Aspartate Aminotrans (AST/SGOT 124.0 U/L (12-37); Bilirubin, Total 0.4 mg/dL (0.1-1.0); Blood Urea Nitrogen 12.0 mg/dL (8-24); CO2, Blood 29.0 mmol/L (21-32); Calcium, Blood 8.1 mg/dL (8.5-10.1); Chloride, Blood 102.0 mmol/L (98-108); Creatinine, Blood 0.65 mg/dL (0.60-1.20); Ethanol (Alcohol), Blood, Med 307.0 mg/dL; Globulin, Blood 4.0 g/dL (2.2-4.0); Glucose, Blood 117.0 mg/dL (70-99); Potassium, Blood 3.2 mmol/L (3.5-5.5); Sodium, Blood 137.0 mmol/L (136-145); Total Protein, Blood 7.5 g/dL (6.4-8.2)
== END 2025-06-11 17:55 | disposition left against medical advice (07) ==
LOC: ER 17:15
PROVIDERS: Student in an Organized Health Care Education/Training Program
DX: F10.239 Alcohol dependence with withdrawal, unspecified (principal); S09.90XA Unspecified injury of head, initial encounter; W22.09XA Striking against other stationary object, initial encounter; W19.XXXA Unspecified fall, initial encounter; Z53.29 Procedure and treatment not carried out because of patient's decision for other reasons
CPT/HCPCS: 80053; 80320; 83690; 85025; 93005; 93010; 99283-25